=== PATIENT | female | born 1975 | race Caucasian/White ===

== ENCOUNTER 2018-01-03 02:41 | Inpatient (IN) | payer BC ==
[2018-01-03] MEDS ORDERED: Oxytocin/0.9 % Sodium Chloride 30 UNIT/500 ML BAG ONE ×2 (03:12→04:52)
[2018-01-03] MEDS ORDERED: Lidocaine 1% 50 ML MDV ONE (03:15)
[2018-01-03] MEDS ORDERED: Methylergonovine 0.2 MG/1 ML Amp ONE (03:20)
[2018-01-03] MEDS ORDERED: Carboprost Tromethamine 250 MCG/1 ML Amp IM PRN (03:26)
[2018-01-03] MEDS ORDERED: Nalbuphine 10 MG/1 ML Vial IVPUSH PRN (03:26)
[2018-01-03] MEDS ORDERED: Butorphanol 1 MG/ML SDV IVPUSH PRN (03:26)
[2018-01-03] MEDS ORDERED: Sodium Chloride 0.9% 2.5 ML Syringe FLUSH PRN (03:26)
[2018-01-03] MEDS ORDERED: Water For Irrigation,Sterile 1,000 ML Container IRR PRN (03:26)
[2018-01-03] MEDS ORDERED: Misoprostol 200 MCG Tab PO PRN (03:26)
[2018-01-03] MEDS ORDERED: Sodium Chloride 0.9% 10 ML Syringe FLUSH PRN (03:26)
[2018-01-03] MEDS ORDERED: Methylergonovine 0.2 MG/1 ML Amp IM PRN ×2 (03:26→03:54)
[2018-01-03] MEDS ORDERED: Tranexamic Acid 1,000 MG in Sodium Chloride 0.9% 100 ML IV PRN (03:26)
[2018-01-03] MEDS ORDERED: Lidocaine 1% 50 ML MDV INJECT PRN (03:26)
[2018-01-03] MEDS ORDERED: Oxytocin/0.9 % Sodium Chloride 30 UNIT/500 ML BAG IV SCH (03:30)
[2018-01-03] MEDS ORDERED: Lactated Ringers 1,000 ML IV SCH (03:30)
[2018-01-03] MEDS ORDERED: Acetaminophen 500 MG Tab PO PRN ×2 (03:54)
[2018-01-03] MEDS ORDERED: Bisacodyl 10 MG Supp RECTAL PRN (03:54)
[2018-01-03] MEDS ORDERED: Witch Hazel Medicated Pads 40/Jar TOP PRN (03:54)
[2018-01-03] MEDS ORDERED: Lanolin 100% Cream 7 GM Tube TOP PRN (03:54)
[2018-01-03] MEDS ORDERED: Ibuprofen 400 MG Tab PO PRN (03:54)
[2018-01-03] MEDS ORDERED: Benzocaine/Menthol 20%-0.5% Spray 78 GM Cannister TOP PRN (03:54)
[2018-01-03] MEDS: Ibuprofen 800 MG Tab PO PRN ×3 (05:02→20:03)
[2018-01-03] MEDS: oxyCODONE 5 MG Tab PO PRN ×3 (05:03→12:19)
[2018-01-03] MEDS: Docusate Sodium 100 MG Cap PO PRN (20:03)
[2018-01-04 07:37] VITALS: BP 122/82
[2018-01-04] MEDS: Docusate Sodium 100 MG Cap PO PRN (08:04)
[2018-01-04] MEDS: Ibuprofen 800 MG Tab PO PRN (08:04)
--- NOTE | 2018-01-04 09:52 | PCM.PNPP ---
<Delores Pierre - Last Filed: 01/04/18 09:46> - General Info Date of Service: 01/04/18 Admission Dx/Problem (Free Text): presented at 39/6 in active labor. Subjective Update: Patient is doing well. Pain is well controlled. and supplementing with formula. Lochia - WNL. Tolerating food with no n/v. Urinating. No bowel movement or flatus. Ambulating. Anticipate discharge today. Functional Status: Reports: Pain Controlled, Tolerating Diet, Ambulating, Urinating - Review of Systems General: Denies: Fever, Chills HEENT: Denies: Headaches Pulmonary: Denies: Shortness of Breath, Pleuritic Chest Pain Cardiovascular: Denies: Chest Pain, Palpitations, Lightheadedness Gastrointestinal: Denies: Abdominal Pain, Nausea, Vomiting - General Info Date of Service: 01/04/18 - Patient Data Vital Signs - Most Recent: Last Vital Signs Temp 37.0 C 01/04/18 07:36 Pulse 76 01/04/18 07:36 Resp 15 01/04/18 07:36 BP 122/82 01/04/18 07:36 Pulse Ox 95 01/04/18 07:36 Lab Results - Last 24 Hours: Laboratory Results - last 24 hr 01/04/18 Range/Units 05:52 Hgb 11.9 L (12.0-16.0) g/dL Hct 35.0 L (36.0-46.0) % Med Orders - Current: Current Medications Acetaminophen (Tylenol Extra Strength) 500 mg PO Q4H PRN PRN Reason: Pain Acetaminophen (Tylenol Extra Strength) 1,000 mg PO Q4H PRN PRN Reason: Pain Benzocaine/Menthol (Dermoplast Pain Relief 20%-0.5% Crowder) 78 gm TOP ASDIRECTED PRN PRN Reason: Perineal Comfort Measure Bisacodyl (Dulcolax) 10 mg RECTAL .ONCE PRN PRN Reason: Constipation Docusate Sodium (Colace) 100 mg PO BID PRN PRN Reason: Constipation Last Admin: 01/04/18 08:04 Dose: 100 mg Emollient Ointment (Lansinoh Hpa) 0 gm TOP ASDIRECTED PRN PRN Reason: Sore Nipples Ibuprofen (Motrin) 400 mg PO Q4H PRN PRN Reason: Pain Ibuprofen (Motrin) 800 mg PO Q6H PRN PRN Reason: Pain Last Admin: 01/04/18 08:04 Dose: 800 mg Methylergonovine Maleate (Methergine) 0.2 mg IM .ONCE PRN PRN Reason: Excessive Vaginal Bleeding Last Admin: 01/03/18 05:01 Dose: 0.2 mg Oxycodone HCl (Oxycodone) 5 mg PO Q2H PRN PRN Reason: Pain Last Admin: 01/03/18 12:19 Dose: 5 mg Witch Megan (Tucks) 1 pad TOP ASDIRECTED PRN PRN Reason: comfort care Discontinued Medications Butorphanol Tartrate (Stadol) 1 mg IVPUSH Q1H PRN PRN Reason: Pain Carboprost Tromethamine (Hemabate Ds) 250 mcg IM ASDIRECTED PRN PRN Reason: Post Hemorrhage Oxytocin/Sodium Chloride (Oxytocin 30 Unit/500 Ml-Ns) Confirm Administered Dose 30 unit in 500 mls @ as directed .ROUTE .STK-MED ONE Stop: 01/03/18 03:13 Last Admin: 01/03/18 03:20 Dose: 999 mls/hr Lactated Ringer's (Ringers, Lactated) 1,000 mls @ 150 mls/hr IV ASDIRECTED CYRUS Oxytocin/Sodium Chloride (Oxytocin 30 Unit/500 Ml-Ns) 30 unit in 500 mls @ 999 mls/hr IV TITRATE C[facility]US Tranexamic Acid 1,000 mg/ (Sodium Chloride) 110 mls @ 660 mls/hr IV ONETIME PRN PRN Reason: Bleeding Oxytocin/Sodium Chloride (Oxytocin 30 Unit/500 Ml-Ns) Confirm Administered Dose 30 unit in 500 mls @ as directed .ROUTE .STK-MED ONE Stop: 01/03/18 04:53 Last Admin: 01/03/18 05:01 Dose: 150 mls/hr Lidocaine HCl (Xylocaine 1%) Confirm Administered Dose 50 ml .ROUTE .STK-MED ONE Stop: 01/03/18 03:16 Last Admin: 01/03/18 03:31 Dose: 50 ml Lidocaine HCl (Xylocaine 1%) 50 ml INJECT .ONCE PRN PRN Reason: Laceration repair Methylergonovine Maleate (Methergine) Confirm Administered Dose 0.2 mg .ROUTE .STK-MED ONE Stop: 01/03/18 03:21 Methylergonovine Maleate (Methergine) 0.2 mg IM ASDIRECTED PRN PRN Reason: Post Hemorrhage Misoprostol (Cytotec) 200 mcg PO .ONCE PRN PRN Reason: Post Hemorrhage Nalbuphine HCl (Nubain) 10 mg IVPUSH Q1H PRN PRN Reason: Pain (severe 7-10) Sodium Chloride (Saline Flush) 10 ml FLUSH ASDIRECTED PRN PRN Reason: Keep Vein Open Sodium Chloride (Saline Flush) 2.5 ml FLUSH ASDIRECTED PRN PRN Reason: Keep Vein Open Sterile Water (Sterile Water For Irrigation) 1,000 ml IRR ASDIRECTED PRN PRN Reason: delivery - Infant Interaction Disposition, : in Room with Family Interaction: Holding Infant Infant Feeding: Attempted ; Nursed Fair/Poor Other Feeding: Supplementing with formula. Support Person: - Recovery Exam Fundal Tone: Firm Fundal Level: 2 Fingerbreadths Below Umbilicus Fundal Placement: Midline Lochia Amount: Scant Lochia Color: Rubra/Red Bladder Status: Voiding Urinary Elimination: Voided - Exam General: Alert, Oriented, No Acute Distress Lungs: Clear to Auscultation, Normal Respiratory Effort Cardiovascular: Regular Rate, Regular Rhythm GI/Abdominal Exam: Soft, Non-Tender Extremities: No Pedal Edema Skin: Warm, Dry Psy/Mental Status: Alert - Assessment Assessment:: , PPD #1. Stable. Discharge today. - Plan Plan:: Reviewed discharge instructions. Pelvic rest for 6 weeks. Continue PNV while . Follow-up appointment in 6 weeks. Call if fever greater than 101 or bleeding through a pad in an hour. Reviewed post- depression symptoms. <Arabella Kong - Last Filed: 01/04/18 11:02> - Patient Data Vital Signs - Most Recent: Last Vital Signs Temp 37.0 C 01/04/18 07:36 Pulse 76 01/04/18 07:36 Resp 15 01/04/18 07:36 BP 122/82 01/04/18 07:36 Pulse Ox 95 01/04/18 07:36 Lab Results - Last 24 Hours: Laboratory Results - last 24 hr 01/04/18 Range/Units 05:52 Hgb 11.9 L (12.0-16.0) g/dL Hct 35.0 L (36.0-46.0) % Med Orders - Current: Current Medications Acetaminophen (Tylenol Extra Strength) 500 mg PO Q4H PRN PRN Reason: Pain Acetaminophen (Tylenol Extra Strength) 1,000 mg PO Q4H PRN PRN Reason: Pain Benzocaine/Menthol (Dermoplast Pain Relief 20%-0.5% Crowder) 78 gm TOP ASDIRECTED PRN PRN Reason: Perineal Comfort Measure Bisacodyl (Dulcolax) 10 mg RECTAL .ONCE PRN PRN Reason: Constipation Docusate Sodium (Colace) 100 mg PO BID PRN PRN Reason: Constipation Last Admin: 01/04/18 08:04 Dose: 100 mg Emollient Ointment (Lansinoh Hpa) 0 gm TOP ASDIRECTED PRN PRN Reason: Sore Nipples Ibuprofen (Motrin) 400 mg PO Q4H PRN PRN Reason: Pain Ibuprofen (Motrin) 800 mg PO Q6H PRN PRN Reason: Pain Last Admin: 01/04/18 08:04 Dose: 800 mg Methylergonovine Maleate (Methergine) 0.2 mg IM .ONCE PRN PRN Reason: Excessive Vaginal Bleeding Last Admin: 01/03/18 05:01 Dose: 0.2 mg Oxycodone HCl (Oxycodone) 5 mg PO Q2H PRN PRN Reason: Pain Last Admin: 01/03/18 12:19 Dose: 5 mg Witch Megan (Tucks) 1 pad TOP ASDIRECTED PRN PRN Reason: comfort care Discontinued Medications Butorphanol Tartrate (Stadol) 1 mg IVPUSH Q1H PRN PRN Reason: Pain Carboprost Tromethamine (Hemabate Ds) 250 mcg IM ASDIRECTED PRN PRN Reason: Post Hemorrhage Oxytocin/Sodium Chloride (Oxytocin 30 Unit/500 Ml-Ns) Confirm Administered Dose 30 unit in 500 mls @ as directed .ROUTE .STK-MED ONE Stop: 01/03/18 03:13 Last Admin: 01/03/18 03:20 Dose: 999 mls/hr Lactated Ringer's (Ringers, Lactated) 1,000 mls @ 150 mls/hr IV ASDIRECTED CYRUS Oxytocin/Sodium Chloride (Oxytocin 30 Unit/500 Ml-Ns) 30 unit in 500 mls @ 999 mls/hr IV TITRATE C[facility] Tranexamic Acid 1,000 mg/ (Sodium Chloride) 110 mls @ 660 mls/hr IV ONETIME PRN PRN Reason: Bleeding Oxytocin/Sodium Chloride (Oxytocin 30 Unit/500 Ml-Ns) Confirm Administered Dose 30 unit in 500 mls @ as directed .ROUTE .STK-MED ONE Stop: 01/03/18 04:53 Last Admin: 01/03/18 05:01 Dose: 150 mls/hr Lidocaine HCl (Xylocaine 1%) Confirm Administered Dose 50 ml .ROUTE .STK-MED ONE Stop: 01/03/18 03:16 Last Admin: 01/03/18 03:31 Dose: 50 ml Lidocaine HCl (Xylocaine 1%) 50 ml INJECT .ONCE PRN PRN Reason: Laceration repair Methylergonovine Maleate (Methergine) Confirm Administered Dose 0.2 mg .ROUTE .[employer] ONE Stop: 01/03/18 03:21 Methylergonovine Maleate (Methergine) 0.2 mg IM ASDIRECTED PRN PRN Reason: Post Hemorrhage Misoprostol (Cytotec) 200 mcg PO .ONCE PRN PRN Reason: Post Hemorrhage Nalbuphine HCl (Nubain) 10 mg IVPUSH Q1H PRN PRN Reason: Pain (severe 7-10) Sodium Chloride (Saline Flush) 10 ml FLUSH ASDIRECTED PRN PRN Reason: Keep Vein Open Sodium Chloride (Saline Flush) 2.5 ml FLUSH ASDIRECTED PRN PRN Reason: Keep Vein Open Sterile Water (Sterile Water For Irrigation) 1,000 ml IRR ASDIRECTED PRN PRN Reason: delivery - Problem List & Annotations (1) Vaginal after SNOMED Code(s): 045677261 Code(s): O34.219 - MATERNAL CARE FOR UNSP TYPE SCAR FROM PREVIOUS DEL Status: Acute Current Visit: Yes - Problem List Review Problem List Initiated/Reviewed/Updated: Yes - Plan Plan:: patient was seen and examined by me and I agree with above, discharge instructions reviewed.
--- NOTE | 2018-01-05 11:26 | OR ---
SURGEON: Arabella Kong M.D. DATE OF PROCEDURE: 01/03/2018 PREOPERATIVE DIAGNOSES: 1. A 39-week intrauterine . 2. Active spontaneous labor. 3. Prior delivery. 4. Desires trial of labor. POSTOPERATIVE DIAGNOSES: 1. A 39-week intrauterine . 2. Active spontaneous labor. 3. Prior delivery. 4. Desires trial of labor. PROCEDURE PERFORMED: Vaginal after delivery. PRIMARY SURGEON: Arabella Kong M.D. ANESTHESIA: Pudendal. ESTIMATED BLOOD LOSS: Less than 300 mL. FINDINGS: Liveborn male, scores of 8 and 9, weight is pending at the time of dictation. Placenta spontaneous, Schultze, intact, with 3 vessels. Perineum intact. BRIEF HISTORY: This is a 42-year-old female. She is G14, V32-4-1-07. She presented with contractions that have become regular and more painful. She presented at approximately 0255 hours. She received an IV, as she was 5 cm and then, soon thereafter, 6 cm dilated. Laboratory studies were obtained. Anesthesia was notified of request for epidural; however, soon thereafter, her water broke, she did have category 1 heart tones. She progressed to complete within a few minutes. DESCRIPTION OF PROCEDURE: With the patient in dorsolithotomy position, she was 9 cm, pudendal block was performed, placing 10 mL of 1% lidocaine 1 cm medial and inferior to the spinous process on the right and the left. This being completed, the patient was allowed to push. She pushed over 1 long contraction to a 5+ station, at which time the head was delivered spontaneously and atraumatically over the perineum with support, with subsequent delivery of the infant's shoulders and body without any difficulty. The was bulb suctioned by nose and mouth, and the cord was clamped x2 and cut. The was handed to the mother in the presence of the nurse attending delivery. The infant was a liveborn male with scores of 8 and 9. Weight is pending at the time of dictation. A segment of cord was clamped. Pitocin was initiated, after delivery of the infant, to assist with delivery of the placenta, which was delivered spontaneously, Schultze, intact with 3 vessels. Upon inspection of the pelvis and perineum, there were no periurethral, vaginal sidewall, cervical, rectal, or perineal lacerations. EBL was less than 300 mL. Upon inspection of the cord, I was unable to obtain any arterial blood; however, venous blood was sent for cord gases, as well as for routine cord blood sampling. Delivery was at 0318 hours. The patient was present on Labor and Delivery for just over 20 minutes prior to the delivery. Final sponge, needle, and instrument counts were correct. There were no known complications. Mother and baby are in LDRP in good condition. MAC TAVERAS /[id number]
== END 2018-01-04 17:30 | disposition home or self-care (01) | DRG 560 ==
LOC: MW.OBCHECK 02:41 → MW.OB 02:44 → MW.OBCHECK 03:17 → MW.OB 03:17
PROVIDERS: ADMIT Obstetrics & Gynecology; ATTEND Obstetrics & Gynecology
PROC: 10E0XZZ Delivery of Products of Conception, External Approach (ICD-10-PCS; principal; 2018-01-03)
DX: O34.211 Maternal care for low transverse scar from previous cesarean delivery (principal); O09.523 Supervision of elderly multigravida, third trimester; O09.43 Supervision of pregnancy with grand multiparity, third trimester; Z3A.39 39 weeks gestation of pregnancy; Z37.0 Single live birth
CPT/HCPCS: 36415; 59025; 59409; 82803; 85014; 85018; 85027; 86850; 86900; 86901; A9270-GY; J2210; J2590

== ENCOUNTER 2019-07-04 01:18 | Inpatient (IN) | payer BC ==
[2019-07-04] MEDS ORDERED: Butorphanol 1 MG/ML SDV IVPUSH PRN (01:23)
[2019-07-04] MEDS ORDERED: Misoprostol 200 MCG Tab PO PRN (01:23)
[2019-07-04] MEDS ORDERED: Lidocaine 1% 50 ML MDV INJECT PRN (01:23)
[2019-07-04] MEDS ORDERED: Sodium Chloride 0.9% 10 ML SDV IV PRN (01:23)
[2019-07-04] MEDS ORDERED: Carboprost Tromethamine 250 MCG/1 ML Amp IM PRN (01:23)
[2019-07-04] MEDS ORDERED: Tranexamic Acid 1,000 MG in Sodium Chloride 0.9% 100 ML IV PRN (01:23)
[2019-07-04] MEDS ORDERED: Nalbuphine 10 MG/1 ML Vial IVPUSH PRN (01:23)
[2019-07-04] MEDS ORDERED: Water For Irrigation,Sterile 1,000 ML Container IRR PRN (01:23)
[2019-07-04] MEDS ORDERED: Sodium Chloride 0.9% 2.5 ML Syringe FLUSH PRN (01:23)
[2019-07-04] MEDS ORDERED: Methylergonovine 0.2 MG/1 ML Amp IM PRN (01:23)
[2019-07-04] MEDS ORDERED: Sodium Chloride 0.9% 10 ML Syringe FLUSH PRN (01:23)
[2019-07-04] MEDS ORDERED: Oxytocin/0.9 % Sodium Chloride 30 UNIT/500 ML BAG IV SCH (01:30)
[2019-07-04] MEDS: Lactated Ringers 1,000 ML IV SCH ×2 (01:32→02:27)
--- NOTE | 2019-07-04 01:41 | PCM.LDHP ---
L&D History of Present Illness - General Date of Service: 07/04/19 Admit Problem/Dx: Patient Status Order with Admit Dx/Problem 07/04/19 01:23 Patient Status [ADT] Routine Admission Diagnosis/Problem Admission Diagnosis/Problem - planned Source of Information: Patient History Limitations: Reports: No Limitations - History of Present Illness Improves with: Reports: None Worsens with: Reports: None Associated Symptoms: Reports: N - Related Data Allergies/Adverse Reactions: Allergies Allergy/AdvReac Type Severity Reaction Status Date / Time No Known Allergies Allergy Verified 07/04/19 01:22 Past Medical History - Past Health History Medical/Surgical History: Denies 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: Social & Family History - Family History Cardiac: Reports: Stent Endocrine/Metabolic: Reports: Hypothyroidism - Caffeine Use Caffeine Use: Reports: Coffee, Soda H&P Review of Systems - Review of Systems: Review Of Systems: See Below General: Reports: No Symptoms HEENT: Reports: No Symptoms Pulmonary: Reports: No Symptoms Cardiovascular: Reports: No Symptoms Gastrointestinal: Reports: No Symptoms Genitourinary: Reports: No Symptoms Musculoskeletal: Reports: No Symptoms Skin: Reports: No Symptoms Psychiatric: Reports: No Symptoms Neurological: Reports: No Symptoms Hematologic/Lymphatic: Reports: No Symptoms Immunologic: Reports: No Symptoms L&D Exam - Exam Exam: See Below - Vital Signs Weight: 83.915 kg - OB Specific Contraction Intensity: Mild to Moderate Movement: Active Heart Tones: Present Presentation: Vertex - Carranza Score Carranza Score Cervix Position: Anterior Carranza Score Consistency: Soft Carranza Score Effacement: 51-70% Carranza Score Dilation: > 5 cm Carranza Score 's Station: -2 Carranza Score Total: 10 - Exam General: Alert, Oriented HEENT: PERRLA, Conjunctiva Clear, EACs Clear, EOMI, Hearing Intact, Mucosa Moist & [place], Nares Patent, Normal Nasal Septum, Posterior Pharynx Clear, TMs Clear Neck: Supple, Trachea Midline Lungs: Clear to Auscultation, Normal Respiratory Effort Cardiovascular: Regular Rate, Regular Rhythm GI/Abdominal Exam: Normal Bowel Sounds, Soft, Non-Tender, No Organomegaly, No Distention, No Abnormal Bruit, No Mass, Pelvis Stable Rectal Exam: Normal Exam, Normal Rectal Tone Genitourinary: Normal external exam, Normal bimanual exam, Normal speculum exam Back Exam: Normal Inspection, Full Range of Motion Extremities: Normal Inspection, Normal Range of Motion, Non-Tender, No Pedal Edema, Normal Capillary Refill Skin: Warm, Dry, Intact Neurological: Cranial Nerves Intact, Reflexes Equal Bilateral Psychiatric: Alert, Normal Affect, Normal Mood Problem List Initiated/Reviewed/Updated: Yes Orders Last 24hrs: Active Orders 24 hr Category Date Time Status Patient Status [ADT] Routine ADT 07/04/19 01:23 Active Heart Tones [RC] CONTINUOUS Care 07/04/19 01:23 Active Non Stress Test [RC] PER UNIT ROUTINE Care 07/04/19 01:23 Active May Shower [RC] ASDIRECTED Care 07/04/19 01:23 Active Notify Provider [RC] PRN Care 07/04/19 01:23 Active Up ad Diana [RC] ASDIRECTED Care 07/04/19 01:23 Active Vaginal Exam [RC] PRN Care 07/04/19 01:23 Active Vital Signs [RC] PER UNIT ROUTINE Care 07/04/19 01:23 Active CBC W/O DIFF,HEMOGRAM [HEME] Routine Lab 07/04/19 01:27 Received TYPE AND SCREEN [BBK] Routine Lab 07/04/19 01:27 Received Butorphanol [Stadol] Med 07/04/19 01:23 Active 1 mg IVPUSH Q1H PRN Carboprost Tromethamine [Hemabate DS] Med 07/04/19 01:23 Active 250 mcg IM ASDIRECTED PRN Lactated Ringers [Ringers, Lactated] 1,000 ml Med 07/04/19 01:30 Active IV ASDIRECTED Lidocaine 1% [Xylocaine 1%] Med 07/04/19 01:23 Active 50 ml INJECT ONETIME PRN Methylergonovine [Methergine] Med 07/04/19 01:23 Active 0.2 mg IM ASDIRECTED PRN Nalbuphine [Nubain] Med 07/04/19 01:23 Active 10 mg IVPUSH Q1H PRN Oxytocin/0.9 % Sodium Chloride [Oxytocin 30 Unit/500 ML Med 07/04/19 01:30 Active -NS] 30 unit in 500 ml IV TITRATE Sodium Chloride 0.9% [Normal Saline] Med 07/04/19 01:23 Active 10 ml IV ASDIRECTED PRN Sodium Chloride 0.9% [Saline Flush] Med 07/04/19 01:23 Active 10 ml FLUSH ASDIRECTED PRN Sodium Chloride 0.9% [Saline Flush] Med 07/04/19 01:23 Active 2.5 ml FLUSH ASDIRECTED PRN Tranexamic Acid [Cyklokapron] 1,000 mg Med 07/04/19 01:23 Active Sodium Chloride 0.9% [Normal Saline] 100 ml IV ONETIME Water For Irrigation,Sterile [Sterile Water for Med 07/04/19 01:23 Active Irrigation] 1,000 ml IRR ASDIRECTED PRN miSOPROStol [Cytotec] Med 07/04/19 01:23 Active 200 mcg PO ONETIME PRN Scalp Electrode [WOMSER] Per Unit Routine Oth 07/04/19 01:23 Ordered Peripheral IV Insertion Adult [OM.PC] Routine Oth 07/04/19 01:23 Ordered Resuscitation Status Routine Resus Stat 07/04/19 01:23 Ordered Medication Orders Butorphanol Tartrate (Stadol) 1 mg IVPUSH Q1H PRN PRN Reason: Pain Carboprost Tromethamine (Hemabate Ds) 250 mcg IM ASDIRECTED PRN PRN Reason: Post Hemorrhage Lactated Ringer's (Ringers, Lactated) 1,000 mls @ 150 mls/hr IV ASDIRECTED [facility] Last Admin: 07/04/19 01:32 Dose: 999 mls/hr Oxytocin/Sodium Chloride (Oxytocin 30 Unit/500 Ml-Ns) 30 unit in 500 mls @ 999 mls/hr IV TITRATE [facility] Tranexamic Acid 1,000 mg/ (Sodium Chloride) 110 mls @ 660 mls/hr IV ONETIME PRN PRN Reason: Bleeding Lidocaine HCl (Xylocaine 1%) 50 ml INJECT ONETIME PRN PRN Reason: Laceration repair Methylergonovine Maleate (Methergine) 0.2 mg IM ASDIRECTED PRN PRN Reason: Post Hemorrhage Misoprostol (Cytotec) 200 mcg PO ONETIME PRN PRN Reason: Post Hemorrhage Nalbuphine HCl (Nubain) 10 mg IVPUSH Q1H PRN PRN Reason: Pain (severe 7-10) Sodium Chloride (Saline Flush) 10 ml FLUSH ASDIRECTED PRN PRN Reason: Keep Vein Open Sodium Chloride (Saline Flush) 2.5 ml FLUSH ASDIRECTED PRN PRN Reason: Keep Vein Open Sodium Chloride (Normal Saline) 10 ml IV ASDIRECTED PRN PRN Reason: IV Use Sterile Water (Sterile Water For Irrigation) 1,000 ml IRR ASDIRECTED PRN PRN Reason: delivery Assessment/Plan Comment:: IUP 40 wk in active labor. S/P VEBC.
[2019-07-04] MEDS ORDERED: fentaNYL 100 MCG/2 ML SDV ONE (01:58)
[2019-07-04] MEDS ORDERED: Bupivacaine 0.25% 10 ML SDV ONE (01:58)
--- NOTE | 2019-07-04 02:34 | PCM.PREANE ---
Preanesthetic Assessment - Procedure Proposed Procedure: KELY for DANA - Anesthesia/Transfusion/Family Hx Anesthesia History: Prior Anesthesia Without Reaction Transfusion History: No Prior Transfusion(s) - Review of Systems General: No Symptoms Pulmonary: No Symptoms Cardiovascular: No Symptoms Gastrointestinal: No Symptoms Neurological: No Symptoms Other: Reports: None - Physical Assessment NPO Status Date: 07/04/19 NPO Status Time: 02:33 Height: 1.65 m Weight: 83.915 kg ASA Class: 2E Mental Status: Alert & Oriented x3 Airway Class: Mallampati = 1 Dentition: Reports: Normal Dentition ROM/Head Extension: Full Lungs: Clear to Auscultation Cardiovascular: Regular Rate - Lab Values: Laboratory Last Values WBC 8.57 K/uL (4.0-11.0) 07/04/19 01:27 RBC 4.11 M/uL (4.30-5.90) L 07/04/19 01:27 Hgb 12.8 g/dL (12.0-16.0) 07/04/19 01:27 Hct 37.3 % (36.0-46.0) 07/04/19 01:27 MCV 90.8 fL (80.0-98.0) 07/04/19 01:27 MCH 31.1 pg (27.0-32.0) 07/04/19 01:27 MCHC 34.3 g/dL (31.0-37.0) 07/04/19 01:27 RDW Std Deviation 42.7 fl (28.0-62.0) 07/04/19 01:27 RDW Coeff of Yi 13 % (11.0-15.0) 07/04/19 01:27 Plt Count 307 K/uL (150-400) 07/04/19 01:27 MPV 9.20 fL (7.40-12.00) 07/04/19 01:27 Blood Type O POSITIVE 07/04/19 01:27 Antibody Screen NEGATIVE 07/04/19 01:27 - Allergies Allergies/Adverse Reactions: Allergies Allergy/AdvReac Type Severity Reaction Status Date / Time No Known Allergies Allergy Verified 07/04/19 01:22 - Acknowledgements Anesthesia Type Planned: Epidural Pt an Appropriate Candidate for the Planned Anesthesia: Yes Alternatives and Risks of Anesthesia Discussed w Pt/Guardian: Yes Pt/Guardian Understands and Agrees with Anesthesia Plan: Yes PreAnesthesia Questionnaire - Past Health History Medical/Surgical History: Denies 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 Current Meds: Current Medications Butorphanol Tartrate (Stadol) 1 mg IVPUSH Q1H PRN PRN Reason: Pain Carboprost Tromethamine (Hemabate Ds) 250 mcg IM ASDIRECTED PRN PRN Reason: Post Hemorrhage Lactated Ringer's (Ringers, Lactated) 1,000 mls @ 150 mls/hr IV ASDIRECTED CYRUS Last Admin: 07/04/19 01:32 Dose: 999 mls/hr Oxytocin/Sodium Chloride (Oxytocin 30 Unit/500 Ml-Ns) 30 unit in 500 mls @ 999 mls/hr IV TITRATE [facility] Tranexamic Acid 1,000 mg/ (Sodium Chloride) 110 mls @ 660 mls/hr IV ONETIME PRN PRN Reason: Bleeding Lidocaine HCl (Xylocaine 1%) 50 ml INJECT ONETIME PRN PRN Reason: Laceration repair Methylergonovine Maleate (Methergine) 0.2 mg IM ASDIRECTED PRN PRN Reason: Post Hemorrhage Misoprostol (Cytotec) 200 mcg PO ONETIME PRN PRN Reason: Post Hemorrhage Nalbuphine HCl (Nubain) 10 mg IVPUSH Q1H PRN PRN Reason: Pain (severe 7-10) Sodium Chloride (Saline Flush) 10 ml FLUSH ASDIRECTED PRN PRN Reason: Keep Vein Open Sodium Chloride (Saline Flush) 2.5 ml FLUSH ASDIRECTED PRN PRN Reason: Keep Vein Open Sodium Chloride (Normal Saline) 10 ml IV ASDIRECTED PRN PRN Reason: IV Use Sterile Water (Sterile Water For Irrigation) 1,000 ml IRR ASDIRECTED PRN PRN Reason: delivery Discontinued Medications Bupivacaine HCl (Sensorcaine-Mpf 0.25%) Confirm Administered Dose 10 ml .ROUTE .STK-MED ONE Stop: 07/04/19 01:59 Fentanyl (Sublimaze) Confirm Administered Dose 100 mcg .ROUTE .STK-MED ONE Stop: 07/04/19 01:59 Fentanyl/Bupivacaine HCl (Xntgnijv-Ijrub-Fi 2 Mcg/Ml-0.125%) Confirm Administered Dose 100 mls @ as directed .ROUTE .STK-MED ONE Stop: 07/04/19 01:59
[2019-07-04] MEDS ORDERED: Docusate Sodium 100 MG Cap PO PRN (05:11)
[2019-07-04] MEDS ORDERED: Witch Hazel Medicated Pads 40/Jar TOP PRN (05:11)
[2019-07-04] MEDS ORDERED: Bisacodyl 10 MG Supp RECTAL PRN (05:11)
[2019-07-04] MEDS ORDERED: Benzocaine/Menthol 20%-0.5% Spray 78 GM Cannister TOP PRN (05:11)
[2019-07-04] MEDS ORDERED: Lanolin 100% Cream 7 GM Tube TOP PRN (05:11)
[2019-07-04] MEDS ORDERED: Acetaminophen 500 MG Tab PO PRN ×2 (05:11)
[2019-07-04] MEDS ORDERED: Ibuprofen 400 MG Tab PO PRN (05:11)
[2019-07-04] MEDS ORDERED: oxyCODONE 5 MG Tab PO PRN (05:11)
[2019-07-04] MEDS: Ibuprofen 800 MG Tab PO PRN ×2 (07:56→17:49)
--- NOTE | 2019-07-04 11:41 | PCM48HPAN ---
Post Anesthesia Note - EVALUATION WITHIN 48HRS OF ANESTHETIC Vital Signs in Normal Range: Yes Patient Participated in Evaluation: Yes Respiratory Function Stable: Yes Airway Patent: Yes Cardiovascular Function Stable: Yes Hydration Status Stable: Yes Pain Control Satisfactory: Yes Nausea and Vomiting Control Satisfactory: Yes Mental Status Recovered: Yes
[2019-07-05] MEDS: Ibuprofen 800 MG Tab PO PRN (08:00)
--- NOTE | 2019-07-05 08:03 | OR ---
SURGEON: Adalberto Giles MD DATE OF PROCEDURE: 07/04/2019 Ms. Ureña is a 44-year-old female. She is para 13-0-1-13. She had 1 section and all others delivered vaginally. She is admitted in active labor. At the time of admission, she was about 5 cm, 70, vertex, -3. The patient has had contractions regularly every 3 to 4 minutes. heart rate was normal. The patient had epidural anesthesia for labor analgesia. Then, I did an artificial rupture of the membranes with clear fluid. The patient is 40 weeks' the day she was admitted, which is July 04, 2019. The patient progressed without any problem, and she was able to accomplish normal spontaneous vaginal delivery of a male fetus, cried immediately. scores reported to be 8 and 9. The weight is not available. The placenta delivered spontaneous, complete, and intact. Estimated blood loss was 250 to 300 mL. heart rate was category 1 through the entire process of labor. There was no laceration and no need for episiotomy. There was no complication in the labor and delivery process. DAGMAR / NITIN /[id number]
[2019-07-05 08:34] VITALS: BP 132/85; PULSE 67
--- NOTE | 2019-07-05 08:52 | PCM.DCSUM1 ---
Discharge Summary - Hospital Course Diagnosis: Stroke: No - Discharge Data Discharge Date: 07/05/19 Discharge Disposition: Home, Self-Care 01 Condition: Good - Referral to Home Health Primary Care Physician: PCP None - Patient Instructions Diet: Usual Diet as Tolerated Activity: As Tolerated Showering/Bathing: May Shower Notify Provider of: Fever, Increased Pain, Nausea and/or Vomiting - Discharge Plan - Discharge Summary/Plan Comment DC Time >30 min.: Yes - General Info Date of Service: 07/05/19 Functional Status: Reports: Pain Controlled - Review of Systems General: Reports: No Symptoms HEENT: Reports: No Symptoms Pulmonary: Reports: No Symptoms Cardiovascular: Reports: No Symptoms Gastrointestinal: Reports: No Symptoms Genitourinary: Reports: No Symptoms Musculoskeletal: Reports: No Symptoms Skin: Reports: No Symptoms Neurological: Reports: No Symptoms Psychiatric: Reports: No Symptoms - Patient Data Vitals - Most Recent: Last Vital Signs Temp 36.4 C 07/05/19 07:38 Pulse 67 07/05/19 07:38 Resp 18 07/05/19 07:38 BP 132/85 07/05/19 07:38 Pulse Ox 97 07/05/19 07:38 Weight - Most Recent: 85.275 kg Lab Results - Last 24 hrs: Laboratory Results - last 24 hr 07/05/19 Range/Units 06:05 Hgb 12.3 (12.0-16.0) g/dL Hct 36.8 (36.0-46.0) % Med Orders - Current: Current Medications Acetaminophen (Tylenol Extra Strength) 500 mg PO Q4H PRN PRN Reason: Pain Acetaminophen (Tylenol Extra Strength) 1,000 mg PO Q4H PRN PRN Reason: Pain Benzocaine/Menthol (Dermoplast Pain Relief 20%-0.5% [place]) 78 gm TOP ASDIRECTED PRN PRN Reason: Perineal Comfort Measure Last Admin: 07/04/19 07:56 Dose: 1 canister Bisacodyl (Dulcolax) 10 mg RECTAL ONETIME PRN PRN Reason: Constipation Docusate Sodium (Colace) 100 mg PO BID PRN PRN Reason: Constipation Last Admin: 07/04/19 20:43 Dose: 100 mg Emollient Ointment (Lansinoh Hpa) 0 gm TOP ASDIRECTED PRN PRN Reason: Sore Nipples Tranexamic Acid 1,000 mg/ (Sodium Chloride) 110 mls @ 660 mls/hr IV ONETIME PRN PRN Reason: Bleeding Ibuprofen (Motrin) 400 mg PO Q4H PRN PRN Reason: Pain Ibuprofen (Motrin) 800 mg PO Q6H PRN PRN Reason: Pain Last Admin: 07/05/19 08:00 Dose: 800 mg Methylergonovine Maleate (Methergine) 0.2 mg IM ASDIRECTED PRN PRN Reason: Post Hemorrhage Misoprostol (Cytotec) 200 mcg PO ONETIME PRN PRN Reason: Post Hemorrhage Oxycodone HCl (Oxycodone) 5 mg PO Q2H PRN PRN Reason: Pain Sodium Chloride (Saline Flush) 10 ml FLUSH ASDIRECTED PRN PRN Reason: Keep Vein Open Sodium Chloride (Saline Flush) 2.5 ml FLUSH ASDIRECTED PRN PRN Reason: Keep Vein Open Sodium Chloride (Normal Saline) 10 ml IV ASDIRECTED PRN PRN Reason: IV Use Witch Megan (Tucks) 1 pad TOP ASDIRECTED PRN PRN Reason: comfort care Last Admin: 07/04/19 07:55 Dose: 1 tub Discontinued Medications Bupivacaine HCl (Sensorcaine-Mpf 0.25%) Confirm Administered Dose 10 ml .ROUTE .STK-MED ONE Stop: 07/04/19 01:59 Butorphanol Tartrate (Stadol) 1 mg IVPUSH Q1H PRN PRN Reason: Pain Carboprost Tromethamine (Hemabate Ds) 250 mcg IM ASDIRECTED PRN PRN Reason: Post Hemorrhage Fentanyl (Sublimaze) Confirm Administered Dose 100 mcg .ROUTE .STK-MED ONE Stop: 07/04/19 01:59 Lactated Ringer's (Ringers, Lactated) 1,000 mls @ 150 mls/hr IV ASDIRECTED CYRUS Last Infusion: 07/04/19 03:15 Dose: Infused Oxytocin/Sodium Chloride (Oxytocin 30 Unit/500 Ml-Ns) 30 unit in 500 mls @ 999 mls/hr IV TITRATE CYRUS Last Admin: 07/04/19 05:00 Dose: 999 mls/hr Fentanyl/Bupivacaine HCl (Hefwbuvf-Cblkz-Pq 2 Mcg/Ml-0.125%) Confirm Administered Dose 100 mls @ as directed .ROUTE .Applicasa ONE Stop: 07/04/19 01:59 Lidocaine HCl (Xylocaine 1%) 50 ml INJECT ONETIME PRN PRN Reason: Laceration repair Nalbuphine HCl (Nubain) 10 mg IVPUSH Q1H PRN PRN Reason: Pain (severe 7-10) Sterile Water (Sterile Water For Irrigation) 1,000 ml IRR ASDIRECTED PRN PRN Reason: delivery - Exam General: Reports: Alert, Oriented HEENT: Reports: Pupils Equal, Pupils Reactive, EOMI, Mucous Membr. Moist/[place] Neck: Reports: Supple Lungs: Reports: Clear to Auscultation, Normal Respiratory Effort Cardiovascular: Reports: Regular Rate, Regular Rhythm GI/Abdominal Exam: Normal Bowel Sounds, Soft, Non-Tender, No Organomegaly, No Distention, No Abnormal Bruit, No Mass, Pelvis Stable (Female) Exam: Normal External Exam, Normal Speculum Exam, Normal Bimanual Exam Rectal (Female) Exam: Normal Exam, Normal Rectal Tone Back Exam: Reports: Normal Inspection, Full Range of Motion Extremities: Normal Inspection, Normal Range of Motion, Non-Tender, No Pedal Edema, Normal Capillary Refill Skin: Reports: Warm, Dry, Intact Wound/Incisions: Reports: Healing Well Neurological: Reports: No New Focal Deficit Psy/Mental Status: Reports: Alert, Normal Affect, Normal Mood
== END 2019-07-05 14:40 | disposition home or self-care (01) | DRG 560 ==
LOC: MW.OBCHECK 01:18 → MW.OB 01:20 → MW.OBCHECK 01:39 → OBSVTOIN 04:59 → MW.OB 11:48
PROVIDERS: ADMIT Obstetrics & Gynecology; ATTEND Obstetrics & Gynecology
PROC: 10E0XZZ Delivery of Products of Conception, External Approach (ICD-10-PCS; principal; 2019-07-04)
PROC: 10907ZC Drainage of Amniotic Fluid, Therapeutic from Products of Conception, Via Natural or Artificial Opening (ICD-10-PCS; 2019-07-04)
PROC: 3E0R3BZ Introduction of Anesthetic Agent into Spinal Canal, Percutaneous Approach (ICD-10-PCS; 2019-07-04)
DX: O48.0 Post-term pregnancy (principal); Z37.0 Single live birth; Z3A.40 40 weeks gestation of pregnancy
CPT/HCPCS: 36415; 51702; 59025; 59409; 85014; 85018; 85027; 86850; 86900; 86901; A9270-GY; J2590; J7120

== ENCOUNTER 2020-09-10 20:59 | Day surgery (SDC) | payer BC ==
--- NOTE | 2020-09-10 21:44 | EDM.PDOC ---
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 Patient believes she is anywhere from 6 to 10 weeks . Patient states that she seen her PIPE BENDING MACHINE OPERATOR doctor and ultrasound that did not confirm IUP but is scheduled to have a D&C this week. Patient states about 2 hours ago started having profuse bright red bleeding from from the vaginal area with clots as well. Patient denies any weakness fevers chills or abdominal pain. - Related Data Allergies Allergy/AdvReac Type Severity Reaction Status Date / Time No Known Allergies Allergy Verified 09/10/20 21:17 Home Meds: Home Meds . [No Known Home Meds] 09/10/20 [History] Past Medical History - Past Health History Medical/Surgical History: Denies Medical/Surgical History PULMONOLOGY TECHNICIAN History: Reports: , Other (See Below) Other PULMONOLOGY TECHNICIAN History: stillborn at 32 weeks, cord around neck. section - Infectious Disease History Infectious Disease History: Reports: Chicken Pox Social & Family History - Family History Family Medical History: No Pertinent Family History Cardiac: Reports: Stent Endocrine/Metabolic: Reports: Hypothyroidism - Tobacco Use Packs/Tins Daily: 0.5 - Caffeine Use Caffeine Use: Reports: None - Recreational Drug Use Recreational Drug Use: No ED ROS GENERAL - Review of Systems Review Of Systems: See Below Constitutional: Reports: No Symptoms HEENT: Reports: No Symptoms Respiratory: Reports: No Symptoms Cardiovascular: Reports: No Symptoms Endocrine: Reports: No Symptoms GI/Abdominal: Reports: No Symptoms : Reports: Hematuria Musculoskeletal: Reports: No Symptoms Skin: Reports: No Symptoms Neurological: Reports: No Symptoms Psychiatric: Reports: No Symptoms Hematologic/Lymphatic: Reports: No Symptoms Immunologic: Reports: No Symptoms ED EXAM, GENERAL - Physical Exam Exam: See Below Exam Limited By: No Limitations General Appearance: Alert, WD/WN, No Apparent Distress Neck: Normal Inspection Respiratory/Chest: No Respiratory Distress, Lungs Clear Cardiovascular: Normal Peripheral Pulses, Regular Rate, Rhythm GI/Abdominal: Normal Bowel Sounds, Soft, Non-Tender (Female) Exam: Normal External Exam, Normal Bimanual Exam, Products of Conception, Vaginal Bleeding Neurological: Alert, Oriented Course - Vital Signs Last Recorded V/S: Last Vital Signs Temp 98.6 F 09/10/20 21:10 Pulse 86 09/10/20 22:48 Resp 18 09/10/20 22:48 BP 123/76 09/10/20 22:48 Pulse Ox 100 09/10/20 22:48 - Orders/Labs/Meds Orders: Active Orders 24 hr Category Date Time Status Admission Status [Patient Status] [ADT] Stat ADT 09/10/20 23:24 Active Patient Status [ADT] Routine ADT 09/10/20 23:56 Active Antiembolic Devices [RC] PER UNIT ROUTINE Care 09/10/20 23:57 Active Verify Patient Consent Obtain [RC] PER UNIT ROUTINE Care 09/10/20 23:56 Active Vital Signs [RC] PER UNIT ROUTINE Care 09/10/20 23:56 Active CBC W/O DIFF,HEMOGRAM [HEME] Routine Lab 09/11/20 04:00 Ordered Acetaminophen [Ofirmev] 1,000 mg Med 09/11/20 00:10 Active Premix Bag 1 bag IV Q6H Doxycycline [Vibramycin] 200 mg Med 09/10/20 23:45 Active Dextrose 5% in Water 250 ml IV Q12H Sodium Chloride 0.9% [Normal Saline] Med 09/10/20 23:56 Active 10 ml IV ASDIRECTED PRN Sodium Chloride 0.9% [Saline Flush] Med 09/10/20 23:56 Active 10 ml FLUSH ASDIRECTED PRN Sodium Chloride 0.9% [Saline Flush] Med 09/10/20 23:56 Active 2.5 ml FLUSH ASDIRECTED PRN fentaNYL [Sublimaze] Med 09/11/20 00:10 Active 50 mcg IVPUSH Q5M PRN Peripheral IV Insertion Adult [OM.PC] Urgent Oth 09/10/20 23:56 Ordered Sequential Compression Device [OM.PC] Per Unit Routine Oth 09/10/20 23:56 Ordered Medication Orders Fentanyl (Sublimaze) 50 mcg IVPUSH Q5M PRN PRN Reason: Pain Doxycycline Hyclate 200 mg/ (Dextrose/Water) 250 mls @ 125 mls/hr IV Q12H CYRUS Stop: 09/11/20 01:44 Last Admin: 09/11/20 00:26 Dose: 125 mls/hr Documented by: KLEIJOC Acetaminophen 1,000 mg/ Premix 100 mls @ 400 mls/hr IV Q6H PRN PRN Reason: Pain Sodium Chloride (Saline Flush) 10 ml FLUSH ASDIRECTED PRN PRN Reason: Keep Vein Open Sodium Chloride (Saline Flush) 2.5 ml FLUSH ASDIRECTED PRN PRN Reason: Keep Vein Open Sodium Chloride (Normal Saline) 10 ml IV ASDIRECTED PRN PRN Reason: IV Use Labs: Laboratory Tests 09/10/20 09/10/20 09/10/20 Range/Units 21:20 21:35 21:35 WBC 10.57 (4.0-11.0) K/uL RBC 4.24 L (4.30-5.90) M/uL Hgb 12.5 (12.0-16.0) g/dL Hct 37.3 (36.0-46.0) % MCV 88.0 (80.0-98.0) fL MCH 29.5 (27.0-32.0) pg MCHC 33.5 (31.0-37.0) g/dL RDW Std Deviation 46.7 (28.0-62.0) fl RDW Coeff of Yi 14 (11.0-15.0) % Plt Count 305 (150-400) K/uL MPV 8.90 (7.40-12.00) fL Neut % (Auto) 72.7 (48.0-80.0) % Lymph % (Auto) 20.0 (16.0-40.0) % [place] % (Auto) 4.4 (0.0-15.0) % Eos % (Auto) 2.6 (0.0-7.0) % Baso % (Auto) 0.3 (0.0-1.5) % Neut # (Auto) 7.7 H (1.4-5.7) K/uL Lymph # (Auto) 2.1 (0.6-2.4) K/uL [place] # (Auto) 0.5 (0.0-0.8) K/uL Eos # (Auto) 0.3 (0.0-0.7) K/uL Baso # (Auto) 0.0 (0.0-0.1) K/uL Nucleated RBC % 0.0 /100WBC Nucleated RBCs # 0 K/uL Sodium 136 (136-145) mmol/L Potassium 3.6 (3.5-5.1) mmol/L Chloride 103 (98-107) mmol/L Carbon Dioxide 24.8 (21.0-32.0) mmol/L BUN 12 (7.0-18.0) mg/dL Creatinine 0.9 (0.6-1.0) mg/dL Est Cr Clr Drug Dosing 71.78 mL/min Estimated GFR (MDRD) > 60.0 ml/min Glucose 107 H (74-106) mg/dL Calcium 9.4 (8.5-10.1) mg/dL Total Bilirubin 0.4 (0.2-1.0) mg/dL AST 11 L (15-37) IU/L ALT 14 (14-63) IU/L Alkaline Phosphatase 57 (46-116) U/L Total Protein 7.1 (6.4-8.2) g/dL Albumin 3.8 (3.4-5.0) g/dL Globulin 3.3 (2.6-4.0) g/dL Albumin/Globulin Ratio 1.2 (0.9-1.6) HCG, Quant mIU/mL Urine Color RED Urine Appearance CLOUDY Urine pH 6.0 (5.0-8.0) Ur Specific [place] 1.025 (1.001-1.035) Urine Protein 30 H (NEGATIVE) mg/dL Urine Glucose (UA) NEGATIVE (NEGATIVE) mg/dL Urine Ketones TRACE H (NEGATIVE) mg/dL Urine Occult Blood LARGE H (NEGATIVE) Urine Nitrite NEGATIVE (NEGATIVE) Urine Bilirubin NEGATIVE (NEGATIVE) Urine Urobilinogen 0.2 (<2.0) EU/dL Ur Leukocyte Esterase NEGATIVE (NEGATIVE) Urine RBC TOO NUMEROUS TO CT H (0-2/HPF) Urine WBC 0-3 (0-5/HPF) Ur Epithelial Cells RARE (NONE-FEW) Urine Bacteria RARE (NEGATIVE) SARS-CoV-2 RNA (CELIA) (NEGATIVE) Blood Type Antibody Screen 09/10/20 09/10/20 09/10/20 Range/Units 21:35 21:40 23:25 WBC (4.0-11.0) K/uL RBC (4.30-5.90) M/uL Hgb (12.0-16.0) g/dL Hct (36.0-46.0) % MCV (80.0-98.0) fL MCH (27.0-32.0) pg MCHC (31.0-37.0) g/dL RDW Std Deviation (28.0-62.0) fl RDW Coeff of Yi (11.0-15.0) % Plt Count (150-400) K/uL MPV (7.40-12.00) fL Neut % (Auto) (48.0-80.0) % Lymph % (Auto) (16.0-40.0) % [place] % (Auto) (0.0-15.0) % Eos % (Auto) (0.0-7.0) % Baso % (Auto) (0.0-1.5) % Neut # (Auto) (1.4-5.7) K/uL Lymph # (Auto) (0.6-2.4) K/uL [place] # (Auto) (0.0-0.8) K/uL Eos # (Auto) (0.0-0.7) K/uL Baso # (Auto) (0.0-0.1) K/uL Nucleated RBC % /100WBC Nucleated RBCs # K/uL Sodium (136-145) mmol/L Potassium (3.5-5.1) mmol/L Chloride (98-107) mmol/L Carbon Dioxide (21.0-32.0) mmol/L BUN (7.0-18.0) mg/dL Creatinine (0.6-1.0) mg/dL Est Cr Clr Drug Dosing mL/min Estimated GFR (MDRD) ml/min Glucose (74-106) mg/dL Calcium (8.5-10.1) mg/dL Total Bilirubin (0.2-1.0) mg/dL AST (15-37) IU/L ALT (14-63) IU/L Alkaline Phosphatase (46-116) U/L Total Protein (6.4-8.2) g/dL Albumin (3.4-5.0) g/dL Globulin (2.6-4.0) g/dL Albumin/Globulin Ratio (0.9-1.6) HCG, Quant 38606.0 mIU/mL Urine Color Urine Appearance Urine pH (5.0-8.0) Ur Specific [place] (1.001-1.035) Urine Protein (NEGATIVE) mg/dL Urine Glucose (UA) (NEGATIVE) mg/dL Urine Ketones (NEGATIVE) mg/dL Urine Occult Blood (NEGATIVE) Urine Nitrite (NEGATIVE) Urine Bilirubin (NEGATIVE) Urine Urobilinogen (<2.0) EU/dL Ur Leukocyte Esterase (NEGATIVE) Urine RBC (0-2/HPF) Urine WBC (0-5/HPF) Ur Epithelial Cells (NONE-FEW) Urine Bacteria (NEGATIVE) SARS-CoV-2 RNA (CELIA) POSITIVE H (NEGATIVE) Blood Type O POSITIVE Antibody Screen NEGATIVE Meds: Medications Generic Name Dose Route Start Last Admin Trade Name Johny PRN Reason Stop Dose Admin Fentanyl 50 mcg 09/11/20 00:10 Sublimaze IVPUSH Q5M PRN Pain Doxycycline Hyclate 200 mg/ 250 mls @ 125 mls/hr 09/10/20 23:45 09/11/20 00:26 Dextrose/Water IV 09/11/20 01:44 125 mls/hr Q12H CYRUS Administration Acetaminophen 1,000 mg/ Premix 100 mls @ 400 mls/hr 09/11/20 00:10 IV Q6H PRN Pain Sodium Chloride 10 ml 09/10/20 23:56 Saline Flush FLUSH ASDIRECTED PRN Keep Vein Open Sodium Chloride 2.5 ml 09/10/20 23:56 Saline Flush FLUSH ASDIRECTED PRN Keep Vein Open Sodium Chloride 10 ml 09/10/20 23:56 Normal Saline IV ASDIRECTED PRN IV Use Discontinued Medications Generic Name Dose Route Start Last Admin Trade Name Johny PRN Reason Stop Dose Admin Chloroprocaine HCl Confirm 09/11/20 00:17 Clorotekal Administered 09/11/20 00:18 Dose 5 ml .ROUTE .STK-MED ONE Fentanyl Confirm 09/11/20 00:02 Sublimaze Administered 09/11/20 00:03 Dose 100 mcg .ROUTE .STK-MED ONE Glycopyrrolate Confirm 09/11/20 00:03 Robinul Administered 09/11/20 00:04 Dose 0.2 mg .ROUTE .STK-MED ONE Tranexamic Acid 1,000 mg/ 110 mls @ 660 mls/hr 09/10/20 22:19 09/10/20 22:40 Sodium Chloride IV 09/10/20 22:28 660 mls/hr ONETIME ONE Administration Sodium Chloride 1,000 mls @ 999 mls/hr 09/10/20 22:22 09/10/20 22:24 Normal Saline IV 09/10/20 23:22 999 mls/hr .Bolus ONE Administration Ketorolac Tromethamine Confirm 09/11/20 00:03 Toradol Administered 09/11/20 00:04 Dose 30 mg .ROUTE .STK-MED ONE Lidocaine Confirm 09/11/20 00:03 Xylocaine-Mpf 2% Administered 09/11/20 00:04 Dose 5 ml .ROUTE .STK-MED ONE Midazolam HCl Confirm 09/11/20 00:02 Versed 1 Mg/Ml Administered 09/11/20 00:03 Dose 2 mg .ROUTE .STK-MED ONE Midazolam HCl Confirm 09/11/20 00:20 Versed 1 Mg/Ml Administered 09/11/20 00:21 Dose 2 mg .ROUTE .STK-MED ONE Ondansetron HCl Confirm 09/11/20 00:03 Zofran Administered 09/11/20 00:04 Dose 4 mg .ROUTE .STK-MED ONE Propofol Confirm 09/11/20 00:01 Diprivan 20 Ml Administered 09/11/20 00:02 Dose 200 mg .ROUTE .STK-MED ONE Tranexamic Acid Confirm 09/10/20 22:33 09/10/20 22:41 Cyklokapron Administered 09/10/20 22:34 Not Given Dose 1,000 mg .ROUTE .STK-MED ONE - Re-Assessments/Exams Free Text/Narrative Re-Assessment/Exam: 09/11/20 00:46 Pt at one point became hypotensive blood pressure was 60/40 patient was given 1 L of IV fluid pressure normalized. Call PIPE BENDING MACHINE OPERATOR came and saw patient at the bedside evaluating will take patient to the OR for D&C. Departure - Departure Time of Disposition: 00:47 Disposition: Still A Patient 30 Condition: Good Clinical Impression: Incomplete - Discharge Information *PRESCRIPTION DRUG MONITORING PROGRAM REVIEWED*: Not Applicable *COPY OF PRESCRIPTION DRUG MONITORING REPORT IN PATIENT ELBA: Not Applicable Sepsis Event Note (ED) - Evaluation Sepsis Screening Result: No Definite Risk - Focused Exam Vital Signs: Vital Signs Temp Pulse Resp BP Pulse Ox 09/10/20 22:48 86 18 123/76 100 09/10/20 22:31 77 18 124/95 H 100 09/10/20 22:27 81 18 123/75 100 09/10/20 22:26 81 18 71/33 L 100 09/10/20 22:04 110 H 18 123/85 98 09/10/20 21:10 98.6 F 92 18 135/86 96 - My Orders Last 24 Hours: My Active Orders 09/10/20 23:24 Admission Status [Patient Status] [ADT] Stat - Assessment/Plan Last 24 Hours: My Active Orders 09/10/20 23:24 Admission Status [Patient Status] [ADT] Stat Assessment:: Patient is a 45-year-old female who presents today for vaginal bleeding. Patient is believed to be 6 to 10 weeks . Patient was already scheduled for D&C this week but came in today because of profuse bleeding. Patient is not symptomatic from the bleeding. There was blood and clots on the vaginal exam. Will send for labs ultrasound and reassess.
[2020-09-10 22:07] LABS: BLOOD UREA NITROGEN,BUN 12 mg/dL (7.0-18.0); CARBON DIOXIDE,CO2 24.8 mmol/L (21.0-32.0); CHLORIDE,CL 103 mmol/L (98-107); GLUCOSE RANDOM 107 mg/dL (74-106); POTASSIUM,K 3.6 mmol/L (3.5-5.1); SODIUM,NA 136 mmol/L (136-145)
[2020-09-10] MEDS ORDERED: Tranexamic Acid 1,000 MG in Sodium Chloride 0.9% 100 ML IV ONE (22:19)
[2020-09-10] MEDS ORDERED: Sodium Chloride 0.9% 1,000 ML IV ONE (22:22)
--- NOTE | 2020-09-10 23:26 | US ---
INDICATION: BLEEDING, MISCARRYING OBSTETRICAL ULTRASOUND Technique: Transvaginal scanning of the pelvis was performed. Findings: There is a teardrop-shaped gestational sac within the cervix. The gestational sac contains a yolk sac and a very small embryonic pole with a crown-rump length of 0.24 centimeters. The crown-rump length corresponds to an estimated menstrual age of 5 weeks 5 days. No embryonic cardiac activity is visible, possibly due to the very early stage of gestation. The ovaries appear within normal limits bilaterally. No significant free pelvic fluid is identified. IMPRESSION: Very early gestational sac within the cervix, with a teardrop-shaped configuration to the gestational sac. This most likely represents a miscarriage in progress. Cervical ectopic is a less likely consideration. Repeat ultrasound in 2-3 days from now is recommended. [place] [facility] Dictated by Evan Wei MD @ 09/10/2020 11:18:42 PM Dictated by: Evan Wei MD @ 09/10/2020 23:25:01 (Electronically Signed)
[2020-09-10] MEDS ORDERED: Doxycycline 200 MG in Dextrose 5% in Water 250 ML IV SCH ×2 (23:45)
[2020-09-10] MEDS ORDERED: Sodium Chloride 0.9% 10 ML SDV IV PRN (23:56)
[2020-09-10] MEDS ORDERED: Sodium Chloride 0.9% 2.5 ML Syringe FLUSH PRN (23:56)
[2020-09-10] MEDS ORDERED: Sodium Chloride 0.9% 10 ML Syringe FLUSH PRN (23:56)
[2020-09-11] MEDS ORDERED: Propofol 200 MG/20 ML SDV ONE (00:01)
[2020-09-11] MEDS ORDERED: Midazolam 1 MG/ML 2 ML SDV ONE ×2 (00:02→00:20)
[2020-09-11] MEDS ORDERED: fentaNYL 100 MCG/2 ML SDV ONE (00:02)
[2020-09-11] MEDS ORDERED: Succinylcholine/Sod PF 100 MG/5 ML SYRINGE IV ONE (00:03)
[2020-09-11] MEDS ORDERED: Ondansetron 4 MG/2 ML SDV ONE (00:03)
[2020-09-11] MEDS ORDERED: Ketorolac 30 MG/ML SDV ONE (00:03)
[2020-09-11] MEDS ORDERED: Glycopyrrolate 0.2 MG/ML SDV ONE (00:03)
[2020-09-11] MEDS ORDERED: Lidocaine 2% 5 ML SDV ONE (00:03)
[2020-09-11] MEDS ORDERED: fentaNYL 100 MCG/2 ML SDV IVPUSH PRN (00:10)
[2020-09-11] MEDS ORDERED: Acetaminophen 1,000 MG in Premix Bag 1 BAG IV PRN (00:10)
--- NOTE | 2020-09-11 00:10 | PCM.HP.2 ---
H&P History of Present Illness - General Date of Service: 09/10/20 Admit Problem/Dx: Admission Diagnosis/Problem Admission Diagnosis/Problem , spontaneous incomplete with hemorrhage Source of Information: Patient History Limitations: Reports: No Limitations - History of Present Illness Initial Comments - Free Text/Narative: 45yo G15P(13)10(13) presenting with incomplete . Patient has diagnosis of missed , measuring 6 weeks on US with no FHR. She had a scheduled dilation and curettage for next week. She started bleeding tonight around 7PM, was very heavy with clots, soaking 1-2 large pads a hour that did not decrease. She presented to ED, was noted to be hypotensive, BP 70/30s, she was symptomatic and felt dizzy. She was given fluid bolus and 1g of TXA and responded, BP normalized. Hgb was 12. Hcg was 12,000, which decreased from 344,000 previously. Pelvic US showed GS at the cervix, no FHR was noted, measuring 5 week 6 days. PMHx: denies PSHx: wisdom tooth, x1 SH: smokes cigarettes 5/d, denies alcohol and recreational drug use OBHx: Hx of 10 NSVDs, 1 was 32wk demise, 1 x1, 2 VBACs ALL: NKDA - Related Data Allergies/Adverse Reactions: Allergies Allergy/AdvReac Type Severity Reaction Status Date / Time No Known Allergies Allergy Verified 09/10/20 21:17 Home Medications: Home Meds . 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 section - Infectious Disease History Infectious Disease History: Reports: Chicken Pox Social & Family History - Family History Family Medical History: No Pertinent Family History Cardiac: Reports: Stent Endocrine/Metabolic: Reports: Hypothyroidism - Tobacco Use Packs/Tins Daily: 0.5 - Caffeine Use Caffeine Use: Reports: None - Recreational Drug Use Recreational Drug Use: No H&P Review of Systems - Review of Systems: Review Of Systems: See Below General: Reports: Weakness HEENT: Reports: No Symptoms Pulmonary: Reports: No Symptoms Cardiovascular: Reports: No Symptoms Gastrointestinal: Reports: No Symptoms Genitourinary: Reports: Other (Vaginal bleeding) Musculoskeletal: Reports: No Symptoms Skin: Reports: No Symptoms Psychiatric: Reports: No Symptoms Neurological: Reports: No Symptoms Hematologic/Lymphatic: Reports: No Symptoms Immunologic: Reports: No Symptoms Exam - Exam Exam: See Below - Vital Signs Vital Signs: Last Vital Signs Temp 37.0 C 09/10/20 21:10 Pulse 86 09/10/20 22:48 Resp 18 09/10/20 22:48 BP 123/76 09/10/20 22:48 Pulse Ox 100 09/10/20 22:48 Weight: 150 lb - Exam General: Alert, Oriented, Cooperative, Mild Distress HEENT: Conjunctiva Clear Neck: Supple, Trachea Midline Lungs: Clear to Auscultation Cardiovascular: Regular Rate, Regular Rhythm GI/Abdominal Exam: Normal Bowel Sounds, Soft, Non-Tender, No Distention Back Exam: Normal Inspection Extremities: Normal Inspection, Normal Range of Motion, Non-Tender, No Pedal Edema Skin: Warm, Dry, Intact Neuro Extensive - Mental Status: Alert, Oriented x3, Normal Mood/Affect - Patient Data Lab Results Last 24 hrs: Laboratory Results - last 24 hr 09/10/20 09/10/20 09/10/20 Range/Units 21:20 21:35 21:35 WBC 10.57 (4.0-11.0) K/uL RBC 4.24 L (4.30-5.90) M/uL Hgb 12.5 (12.0-16.0) g/dL Hct 37.3 (36.0-46.0) % MCV 88.0 (80.0-98.0) fL MCH 29.5 (27.0-32.0) pg MCHC 33.5 (31.0-37.0) g/dL RDW Std Deviation 46.7 (28.0-62.0) fl RDW Coeff of Yi 14 (11.0-15.0) % Plt Count 305 (150-400) K/uL MPV 8.90 (7.40-12.00) fL Neut % (Auto) 72.7 (48.0-80.0) % Lymph % (Auto) 20.0 (16.0-40.0) % [place] % (Auto) 4.4 (0.0-15.0) % Eos % (Auto) 2.6 (0.0-7.0) % Baso % (Auto) 0.3 (0.0-1.5) % Neut # (Auto) 7.7 H (1.4-5.7) K/uL Lymph # (Auto) 2.1 (0.6-2.4) K/uL [place] # (Auto) 0.5 (0.0-0.8) K/uL Eos # (Auto) 0.3 (0.0-0.7) K/uL Baso # (Auto) 0.0 (0.0-0.1) K/uL Nucleated RBC % 0.0 /100WBC Nucleated RBCs # 0 K/uL Sodium 136 (136-145) mmol/L Potassium 3.6 (3.5-5.1) mmol/L Chloride 103 (98-107) mmol/L Carbon Dioxide 24.8 (21.0-32.0) mmol/L BUN 12 (7.0-18.0) mg/dL Creatinine 0.9 (0.6-1.0) mg/dL Est Cr Clr Drug Dosing 71.78 mL/min Estimated GFR (MDRD) > 60.0 ml/min Glucose 107 H (74-106) mg/dL Calcium 9.4 (8.5-10.1) mg/dL Total Bilirubin 0.4 (0.2-1.0) mg/dL AST 11 L (15-37) IU/L ALT 14 (14-63) IU/L Alkaline Phosphatase 57 (46-116) U/L Total Protein 7.1 (6.4-8.2) g/dL Albumin 3.8 (3.4-5.0) g/dL Globulin 3.3 (2.6-4.0) g/dL Albumin/Globulin Ratio 1.2 (0.9-1.6) HCG, Quant mIU/mL Urine Color RED Urine Appearance CLOUDY Urine pH 6.0 (5.0-8.0) Ur Specific [place] 1.025 (1.001-1.035) Urine Protein 30 H (NEGATIVE) mg/dL Urine Glucose (UA) NEGATIVE (NEGATIVE) mg/dL Urine Ketones TRACE H (NEGATIVE) mg/dL Urine Occult Blood LARGE H (NEGATIVE) Urine Nitrite NEGATIVE (NEGATIVE) Urine Bilirubin NEGATIVE (NEGATIVE) Urine Urobilinogen 0.2 (<2.0) EU/dL Ur Leukocyte Esterase NEGATIVE (NEGATIVE) Urine RBC TOO NUMEROUS TO CT H (0-2/HPF) Urine WBC 0-3 (0-5/HPF) Ur Epithelial Cells RARE (NONE-FEW) Urine Bacteria RARE (NEGATIVE) Blood Type 09/10/20 09/10/20 Range/Units 21:35 21:40 WBC (4.0-11.0) K/uL RBC (4.30-5.90) M/uL Hgb (12.0-16.0) g/dL Hct (36.0-46.0) % MCV (80.0-98.0) fL MCH (27.0-32.0) pg MCHC (31.0-37.0) g/dL RDW Std Deviation (28.0-62.0) fl RDW Coeff of Yi (11.0-15.0) % Plt Count (150-400) K/uL MPV (7.40-12.00) fL Neut % (Auto) (48.0-80.0) % Lymph % (Auto) (16.0-40.0) % [place] % (Auto) (0.0-15.0) % Eos % (Auto) (0.0-7.0) % Baso % (Auto) (0.0-1.5) % Neut # (Auto) (1.4-5.7) K/uL Lymph # (Auto) (0.6-2.4) K/uL [place] # (Auto) (0.0-0.8) K/uL Eos # (Auto) (0.0-0.7) K/uL Baso # (Auto) (0.0-0.1) K/uL Nucleated RBC % /100WBC Nucleated RBCs # K/uL Sodium (136-145) mmol/L Potassium (3.5-5.1) mmol/L Chloride (98-107) mmol/L Carbon Dioxide (21.0-32.0) mmol/L BUN (7.0-18.0) mg/dL Creatinine (0.6-1.0) mg/dL Est Cr Clr Drug Dosing mL/min Estimated GFR (MDRD) ml/min Glucose (74-106) mg/dL Calcium (8.5-10.1) mg/dL Total Bilirubin (0.2-1.0) mg/dL AST (15-37) IU/L ALT (14-63) IU/L Alkaline Phosphatase (46-116) U/L Total Protein (6.4-8.2) g/dL Albumin (3.4-5.0) g/dL Globulin (2.6-4.0) g/dL Albumin/Globulin Ratio (0.9-1.6) HCG, Quant 61151.0 mIU/mL Urine Color Urine Appearance Urine pH (5.0-8.0) Ur Specific [place] (1.001-1.035) Urine Protein (NEGATIVE) mg/dL Urine Glucose (UA) (NEGATIVE) mg/dL Urine Ketones (NEGATIVE) mg/dL Urine Occult Blood (NEGATIVE) Urine Nitrite (NEGATIVE) Urine Bilirubin (NEGATIVE) Urine Urobilinogen (<2.0) EU/dL Ur Leukocyte Esterase (NEGATIVE) Urine RBC (0-2/HPF) Urine WBC (0-5/HPF) Ur Epithelial Cells (NONE-FEW) Urine Bacteria (NEGATIVE) Blood Type O POSITIVE Result Diagrams: 09/10/20 21:35 09/10/20 21:35 Sepsis Event Note - Evaluation Sepsis Screening Result: No Definite Risk - Focused Exam Vital Signs: Vital Signs Temp Pulse Resp BP Pulse Ox 09/10/20 22:48 86 18 123/76 100 09/10/20 22:31 77 18 124/95 H 100 09/10/20 22:27 81 18 123/75 100 09/10/20 22:26 81 18 71/33 L 100 09/10/20 22:04 110 H 18 123/85 98 09/10/20 21:10 37.0 C 92 18 135/86 96 Problem List Initiated/Reviewed/Updated: Yes Orders Last 24hrs: Active Orders 24 hr Category Date Time Status Admission Status [Patient Status] [ADT] Stat ADT 09/10/20 23:24 Active Patient Status [ADT] Routine ADT 09/10/20 23:56 Active Antiembolic Devices [RC] PER UNIT ROUTINE Care 09/10/20 23:57 Active Verify Patient Consent Obtain [RC] PER UNIT ROUTINE Care 09/10/20 23:56 Active Vital Signs [RC] PER UNIT ROUTINE Care 09/10/20 23:56 Active ABO/RH TYPE [BBK] Stat Lab 09/10/20 21:40 Results ANTIBODY SCREEN (KYLE) [BBK] Stat Lab 09/10/20 21:40 Results CBC W/O DIFF,HEMOGRAM [HEME] Routine Lab 09/11/20 04:00 Ordered CORONAVIRUS COVID-19 CELIA [MOLEC] Stat Lab 09/10/20 23:25 Received Doxycycline [Vibramycin] 200 mg Med 09/10/20 23:45 Active Dextrose 5% in Water 250 ml IV Q12H Sodium Chloride 0.9% [Normal Saline] Med 09/10/20 23:56 Active 10 ml IV ASDIRECTED PRN Sodium Chloride 0.9% [Saline Flush] Med 09/10/20 23:56 Active 10 ml FLUSH ASDIRECTED PRN Sodium Chloride 0.9% [Saline Flush] Med 09/10/20 23:56 Active 2.5 ml FLUSH ASDIRECTED PRN Peripheral IV Insertion Adult [OM.PC] Urgent Oth 09/10/20 23:56 Ordered Sequential Compression Device [OM.PC] Per Unit Routine Oth 09/10/20 23:56 Ordered Medication Orders Doxycycline Hyclate 200 mg/ (Dextrose/Water) 250 mls @ 125 mls/hr IV Q12H CYRUS Stop: 09/11/20 01:44 Sodium Chloride (Saline Flush) 10 ml FLUSH ASDIRECTED PRN PRN Reason: Keep Vein Open Sodium Chloride (Saline Flush) 2.5 ml FLUSH ASDIRECTED PRN PRN Reason: Keep Vein Open Sodium Chloride (Normal Saline) 10 ml IV ASDIRECTED PRN PRN Reason: IV Use Assessment/Plan Comment:: 45yo G15P(13)10(13) presenting with incomplete and hemorrhage. - having heavy vaginal bleeding with unstable vital signs, did respond to IVF ang TXA 1g - TVUS confirmed GS and 5w6d IUP with no FHR at the cervix - Hgb 12.5 - blood type Rh+ - COVID19 rapid test was positive, currently asymptomatic, reports was exposed 2 months ago when her son was positive. Discussed with patient since her vitals has improved, can monitor closely and expectantly manage or give cytotec or proceed with suction dilation and curettage to stop further hemorrhage. She desires to proceed with D&C, reviewed risk of procedure includes bleeding, infection, DVTs, injury to surround organs, including bladder, bowel, ureters. Questions answered and consent signed. OR team and anesthesia informed, proceed to OR urgently. Will have spinal anes thesia to decrease risk of respiratory complications per anesthesia team. - Mortality Measure Prognosis:: Good
--- NOTE | 2020-09-11 00:10 | PCM.PREANE ---
Preanesthetic Assessment - Anesthesia/Transfusion/Family Hx Anesthesia History: Prior Anesthesia Without Reaction Family History of Anesthesia Reaction: No Transfusion History: No Prior Transfusion(s) - Physical Assessment NPO Status Date: 09/10/20 NPO Status Time: 19:00 Vital Signs: Last Vital Signs Temp 37.0 C 09/10/20 21:10 Pulse 86 09/10/20 22:48 Resp 18 09/10/20 22:48 BP 123/76 09/10/20 22:48 Pulse Ox 100 09/10/20 22:48 Height: 1.65 m Weight: 68.039 kg ASA Class: 2E - Lab Values: Laboratory Last Values WBC 10.57 K/uL (4.0-11.0) 09/10/20 21:35 RBC 4.24 M/uL (4.30-5.90) L 09/10/20 21:35 Hgb 12.5 g/dL (12.0-16.0) 09/10/20 21:35 Hct 37.3 % (36.0-46.0) 09/10/20 21:35 MCV 88.0 fL (80.0-98.0) 09/10/20 21:35 MCH 29.5 pg (27.0-32.0) 09/10/20 21:35 MCHC 33.5 g/dL (31.0-37.0) 09/10/20 21:35 RDW Std Deviation 46.7 fl (28.0-62.0) 09/10/20 21:35 RDW Coeff of Yi 14 % (11.0-15.0) 09/10/20 21:35 Plt Count 305 K/uL (150-400) 09/10/20 21:35 MPV 8.90 fL (7.40-12.00) 09/10/20 21:35 Neut % (Auto) 72.7 % (48.0-80.0) 09/10/20 21:35 Lymph % (Auto) 20.0 % (16.0-40.0) 09/10/20 21:35 [place] % (Auto) 4.4 % (0.0-15.0) 09/10/20 21:35 Eos % (Auto) 2.6 % (0.0-7.0) 09/10/20 21:35 Baso % (Auto) 0.3 % (0.0-1.5) 09/10/20 21:35 Neut # (Auto) 7.7 K/uL (1.4-5.7) H 09/10/20 21:35 Lymph # (Auto) 2.1 K/uL (0.6-2.4) 09/10/20 21:35 [place] # (Auto) 0.5 K/uL (0.0-0.8) 09/10/20 21:35 Eos # (Auto) 0.3 K/uL (0.0-0.7) 09/10/20 21:35 Baso # (Auto) 0.0 K/uL (0.0-0.1) 09/10/20 21:35 Nucleated RBC % 0.0 /100WBC 09/10/20 21:35 Nucleated RBCs # 0 K/uL 09/10/20 21:35 Sodium 136 mmol/L (136-145) 09/10/20 21:35 Potassium 3.6 mmol/L (3.5-5.1) 09/10/20 21:35 Chloride 103 mmol/L (98-107) 09/10/20 21:35 Carbon Dioxide 24.8 mmol/L (21.0-32.0) 09/10/20 21:35 BUN 12 mg/dL (7.0-18.0) 09/10/20 21:35 Creatinine 0.9 mg/dL (0.6-1.0) 09/10/20 21:35 Est Cr Clr Drug Dosing 71.78 mL/min 09/10/20 21:35 Estimated GFR (MDRD) > 60.0 ml/min 09/10/20 21:35 Glucose 107 mg/dL (74-106) H 09/10/20 21:35 Calcium 9.4 mg/dL (8.5-10.1) 09/10/20 21:35 Total Bilirubin 0.4 mg/dL (0.2-1.0) 09/10/20 21:35 AST 11 IU/L (15-37) L 09/10/20 21:35 ALT 14 IU/L (14-63) 09/10/20 21:35 Alkaline Phosphatase 57 U/L (46-116) 09/10/20 21:35 Total Protein 7.1 g/dL (6.4-8.2) 09/10/20 21:35 Albumin 3.8 g/dL (3.4-5.0) 09/10/20 21:35 Globulin 3.3 g/dL (2.6-4.0) 09/10/20 21:35 Albumin/Globulin Ratio 1.2 (0.9-1.6) 09/10/20 21:35 HCG, Quant 75491.0 mIU/mL 09/10/20 21:35 Urine Color RED 09/10/20 21:20 Urine Appearance CLOUDY 09/10/20 21:20 Urine pH 6.0 (5.0-8.0) 09/10/20 21:20 Ur Specific [place] 1.025 (1.001-1.035) 09/10/20 21:20 Urine Protein 30 mg/dL (NEGATIVE) H 09/10/20 21:20 Urine Glucose (UA) NEGATIVE mg/dL (NEGATIVE) 09/10/20 21:20 Urine Ketones TRACE mg/dL (NEGATIVE) H 09/10/20 21:20 Urine Occult Blood LARGE (NEGATIVE) H 09/10/20 21:20 Urine Nitrite NEGATIVE (NEGATIVE) 09/10/20 21:20 Urine Bilirubin NEGATIVE (NEGATIVE) 09/10/20 21:20 Urine Urobilinogen 0.2 EU/dL (<2.0) 09/10/20 21:20 Ur Leukocyte Esterase NEGATIVE (NEGATIVE) 09/10/20 21:20 Urine RBC TOO NUMEROUS TO CT (0-2/HPF) H 09/10/20 21:20 Urine WBC 0-3 (0-5/HPF) 09/10/20 21:20 Ur Epithelial Cells RARE (NONE-FEW) 09/10/20 21:20 Urine Bacteria RARE (NEGATIVE) 09/10/20 21:20 Blood Type O POSITIVE 09/10/20 21:40 - Allergies Allergies/Adverse Reactions: Allergies Allergy/AdvReac Type Severity Reaction Status Date / Time No Known Allergies Allergy Verified 09/10/20 21:17 - Acknowledgements Anesthesia Type Planned: General Anesthesia Pt an Appropriate Candidate for the Planned Anesthesia: Yes Alternatives and Risks of Anesthesia Discussed w Pt/Guardian: Yes Pt/Guardian Understands and Agrees with Anesthesia Plan: Yes PreAnesthesia Questionnaire - Past Health History Medical/Surgical History: Denies 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 section - Infectious Disease History Infectious Disease History: Reports: Chicken Pox - SUBSTANCE USE Tobacco Use Within Last Twelve Months: Cigarettes Recreational Drug Use History: No - HOME MEDS Home Medications: Home Meds . [No Known Home Meds] 09/10/20 [History] - CURRENT (IN HOUSE) MEDS Current Meds: Current Medications Doxycycline Hyclate 200 mg/ (Dextrose/Water) 250 mls @ 125 mls/hr IV Q12H CYRUS Stop: 09/11/20 01:44 Sodium Chloride (Saline Flush) 10 ml FLUSH ASDIRECTED PRN PRN Reason: Keep Vein Open Sodium Chloride (Saline Flush) 2.5 ml FLUSH ASDIRECTED PRN PRN Reason: Keep Vein Open Sodium Chloride (Normal Saline) 10 ml IV ASDIRECTED PRN PRN Reason: IV Use Discontinued Medications Fentanyl (Sublimaze) Confirm Administered Dose 100 mcg .ROUTE .STK-MED ONE Stop: 09/11/20 00:03 Glycopyrrolate (Robinul) Confirm Administered Dose 0.2 mg .ROUTE .STK-MED ONE Stop: 09/11/20 00:04 Tranexamic Acid 1,000 mg/ (Sodium Chloride) 110 mls @ 660 mls/hr IV ONETIME ONE Stop: 09/10/20 22:28 Last Admin: 09/10/20 22:40 Dose: 660 mls/hr Documented by: Sodium Chloride (Normal Saline) 1,000 mls @ 999 mls/hr IV .Bolus ONE Stop: 09/10/20 23:22 Last Admin: 09/10/20 22:24 Dose: 999 mls/hr Documented by: Ketorolac Tromethamine (Toradol) Confirm Administered Dose 30 mg .ROUTE .STK-MED ONE Stop: 09/11/20 00:04 Lidocaine (Xylocaine-Mpf 2%) Confirm Administered Dose 5 ml .ROUTE .STK-MED ONE Stop: 09/11/20 00:04 Midazolam HCl (Versed 1 Mg/Ml) Confirm Administered Dose 2 mg .ROUTE .STK-MED ONE Stop: 09/11/20 00:03 Ondansetron HCl (Zofran) Confirm Administered Dose 4 mg .ROUTE .STK-MED ONE Stop: 09/11/20 00:04 Propofol (Diprivan 20 Ml) Confirm Administered Dose 200 mg .ROUTE .STK-MED ONE Stop: 09/11/20 00:02 Tranexamic Acid (Cyklokapron) Confirm Administered Dose 1,000 mg .ROUTE .STK-MED ONE Stop: 09/10/20 22:34 Last Admin: 09/10/20 22:41 Dose: Not Given Documented by:
[2020-09-11] MEDS ORDERED: Chloroprocaine 10 MG/ML 5 ML Amp ONE (00:17)
[2020-09-11] MEDS ORDERED: Methylergonovine 0.2 MG/1 ML Amp ONE (01:16)
[2020-09-11] MEDS ORDERED: Promethazine 25 MG/ML SDV IM PRN (01:54)
[2020-09-11] MEDS ORDERED: Ondansetron 4 MG/2 ML SDV IVPUSH PRN (01:54)
[2020-09-11] MEDS ORDERED: Acetaminophen/oxyCODONE 325-5 MG Tab PO PRN ×2 (01:54)
[2020-09-11] MEDS ORDERED: Morphine 4 MG/ML Syringe IVPUSH PRN (01:54)
--- NOTE | 2020-09-11 01:57 | PCM.POSTAN ---
POST ANESTHESIA ASSESSMENT - MENTAL STATUS Mental Status: Alert - VITAL SIGNS Vital Signs: Last Vital Signs Temp 37.0 C 09/10/20 21:10 Pulse 86 09/10/20 22:48 Resp 18 09/10/20 22:48 BP 123/76 09/10/20 22:48 Pulse Ox 100 09/10/20 22:48 - RESPIRATORY Respiratory Status: Respiratory Rate WNL - CARDIOVASCULAR CV Status: Pulse Rate WNL - GASTROINTESTINAL GI Status: No Symptoms - POST OP HYDRATION Hydration Status: Adequate & Stable
--- NOTE | 2020-09-11 02:01 | PCM.OPNOTE ---
- General Post-Op/Procedure Note Date of Surgery/Procedure: 09/11/20 Operative Procedure(s): Suction Dilation and Curettage Findings: Cervix dilated with POCs at the cervical os, uterus about 6 weeks size. Pre Op Diagnosis: Incomplete with hemorrhage Post-Op Diagnosis: Incomplete with hemorrhage Anesthesia Technique: Spinal Primary Surgeon: Kaleb Tubbs Anesthesia Provider: Elpidio Iglesias Pathology: Products of conception EBL in mLs: 200 Complications: None Condition: Stable Free Text/Narrative:: Repeat CBC in AM.
[2020-09-11] MEDS ORDERED: Ketorolac 30 MG/ML SDV IVPUSH PRN (07:00)
--- NOTE | 2020-09-11 07:57 | PCM48HPAN ---
Post Anesthesia Note - EVALUATION WITHIN 48HRS OF ANESTHETIC Vital Signs in Normal Range: Yes Patient Participated in Evaluation: Yes Respiratory Function Stable: Yes Airway Patent: Yes Cardiovascular Function Stable: Yes Hydration Status Stable: Yes Pain Control Satisfactory: Yes Nausea and Vomiting Control Satisfactory: Yes Mental Status Recovered: Yes Vital Signs: Last Vital Signs Temp 36.6 C 09/11/20 02:05 Pulse 70 09/11/20 06:00 Resp 16 09/11/20 06:00 BP 96/57 L 09/11/20 06:00 Pulse Ox 99 09/11/20 06:00 - COMMENTS/OBSERVATIONS Free Text/Narrative:: The patient has no complaints at this time. She is awake, and is in no acute distress. There were no apparent anesthetic complications at this time. Discharge from anesthesia service.
[2020-09-11] MEDS ORDERED: Sodium Chloride 0.9% 1,000 ML IV ONE (09:36)
--- NOTE | 2020-09-11 10:16 | PCM.PN ---
- General Info Date of Service: 09/11/20 Functional Status: Reports: Pain Controlled, Tolerating Diet, Ambulating, Urinating, Other (Bleeding is light. ) - Review of Systems General: Reports: No Symptoms HEENT: Reports: No Symptoms Pulmonary: Reports: No Symptoms Cardiovascular: Reports: No Symptoms Gastrointestinal: Reports: No Symptoms Genitourinary: Reports: No Symptoms Musculoskeletal: Reports: No Symptoms Skin: Reports: No Symptoms Neurological: Reports: No Symptoms Psychiatric: Reports: No Symptoms - Patient Data Vitals - Most Recent: Last Vital Signs Temp 36.3 C 09/11/20 08:48 Pulse 65 09/11/20 08:48 Resp 16 09/11/20 08:48 BP 101/59 L 09/11/20 08:48 Pulse Ox 99 09/11/20 08:48 Weight - Most Recent: 150 lb I&O - Last 24 Hours: Intake & Output 09/10/20 09/11/20 09/11/20 22:59 06:59 14:59 Intake Total 550 Output Total 1000 Balance -450 Lab Results Last 24 Hours: Laboratory Results - last 24 hr 09/10/20 09/10/20 09/10/20 Range/Units 21:20 21:35 21:35 WBC 10.57 (4.0-11.0) K/uL RBC 4.24 L (4.30-5.90) M/uL Hgb 12.5 (12.0-16.0) g/dL Hct 37.3 (36.0-46.0) % MCV 88.0 (80.0-98.0) fL MCH 29.5 (27.0-32.0) pg MCHC 33.5 (31.0-37.0) g/dL RDW Std Deviation 46.7 (28.0-62.0) fl RDW Coeff of Yi 14 (11.0-15.0) % Plt Count 305 (150-400) K/uL MPV 8.90 (7.40-12.00) fL Neut % (Auto) 72.7 (48.0-80.0) % Lymph % (Auto) 20.0 (16.0-40.0) % Thayer % (Auto) 4.4 (0.0-15.0) % Eos % (Auto) 2.6 (0.0-7.0) % Baso % (Auto) 0.3 (0.0-1.5) % Neut # (Auto) 7.7 H (1.4-5.7) K/uL Lymph # (Auto) 2.1 (0.6-2.4) K/uL Thayer # (Auto) 0.5 (0.0-0.8) K/uL Eos # (Auto) 0.3 (0.0-0.7) K/uL Baso # (Auto) 0.0 (0.0-0.1) K/uL Nucleated RBC % 0.0 /100WBC Nucleated RBCs # 0 K/uL Sodium 136 (136-145) mmol/L Potassium 3.6 (3.5-5.1) mmol/L Chloride 103 (98-107) mmol/L Carbon Dioxide 24.8 (21.0-32.0) mmol/L BUN 12 (7.0-18.0) mg/dL Creatinine 0.9 (0.6-1.0) mg/dL Est Cr Clr Drug Dosing 71.78 mL/min Estimated GFR (MDRD) > 60.0 ml/min Glucose 107 H (74-106) mg/dL Calcium 9.4 (8.5-10.1) mg/dL Total Bilirubin 0.4 (0.2-1.0) mg/dL AST 11 L (15-37) IU/L ALT 14 (14-63) IU/L Alkaline Phosphatase 57 (46-116) U/L Total Protein 7.1 (6.4-8.2) g/dL Albumin 3.8 (3.4-5.0) g/dL Globulin 3.3 (2.6-4.0) g/dL Albumin/Globulin Ratio 1.2 (0.9-1.6) HCG, Quant mIU/mL Urine Color RED Urine Appearance CLOUDY Urine pH 6.0 (5.0-8.0) Ur Specific [place] 1.025 (1.001-1.035) Urine Protein 30 H (NEGATIVE) mg/dL Urine Glucose (UA) NEGATIVE (NEGATIVE) mg/dL Urine Ketones TRACE H (NEGATIVE) mg/dL Urine Occult Blood LARGE H (NEGATIVE) Urine Nitrite NEGATIVE (NEGATIVE) Urine Bilirubin NEGATIVE (NEGATIVE) Urine Urobilinogen 0.2 (<2.0) EU/dL Ur Leukocyte Esterase NEGATIVE (NEGATIVE) Urine RBC TOO NUMEROUS TO CT H (0-2/HPF) Urine WBC 0-3 (0-5/HPF) Ur Epithelial Cells RARE (NONE-FEW) Urine Bacteria RARE (NEGATIVE) SARS-CoV-2 RNA (CELIA) (NEGATIVE) Blood Type Antibody Screen 09/10/20 09/10/20 09/10/20 Range/Units 21:35 21:40 23:25 WBC (4.0-11.0) K/uL RBC (4.30-5.90) M/uL Hgb (12.0-16.0) g/dL Hct (36.0-46.0) % MCV (80.0-98.0) fL MCH (27.0-32.0) pg MCHC (31.0-37.0) g/dL RDW Std Deviation (28.0-62.0) fl RDW Coeff of Yi (11.0-15.0) % Plt Count (150-400) K/uL MPV (7.40-12.00) fL Neut % (Auto) (48.0-80.0) % Lymph % (Auto) (16.0-40.0) % Thayer % (Auto) (0.0-15.0) % Eos % (Auto) (0.0-7.0) % Baso % (Auto) (0.0-1.5) % Neut # (Auto) (1.4-5.7) K/uL Lymph # (Auto) (0.6-2.4) K/uL Thayer # (Auto) (0.0-0.8) K/uL Eos # (Auto) (0.0-0.7) K/uL Baso # (Auto) (0.0-0.1) K/uL Nucleated RBC % /100WBC Nucleated RBCs # K/uL Sodium (136-145) mmol/L Potassium (3.5-5.1) mmol/L Chloride (98-107) mmol/L Carbon Dioxide (21.0-32.0) mmol/L BUN (7.0-18.0) mg/dL Creatinine (0.6-1.0) mg/dL Est Cr Clr Drug Dosing mL/min Estimated GFR (MDRD) ml/min Glucose (74-106) mg/dL Calcium (8.5-10.1) mg/dL Total Bilirubin (0.2-1.0) mg/dL AST (15-37) IU/L ALT (14-63) IU/L Alkaline Phosphatase (46-116) U/L Total Protein (6.4-8.2) g/dL Albumin (3.4-5.0) g/dL Globulin (2.6-4.0) g/dL Albumin/Globulin Ratio (0.9-1.6) HCG, Quant 24965.0 mIU/mL Urine Color Urine Appearance Urine pH (5.0-8.0) Ur Specific [place] (1.001-1.035) Urine Protein (NEGATIVE) mg/dL Urine Glucose (UA) (NEGATIVE) mg/dL Urine Ketones (NEGATIVE) mg/dL Urine Occult Blood (NEGATIVE) Urine Nitrite (NEGATIVE) Urine Bilirubin (NEGATIVE) Urine Urobilinogen (<2.0) EU/dL Ur Leukocyte Esterase (NEGATIVE) Urine RBC (0-2/HPF) Urine WBC (0-5/HPF) Ur Epithelial Cells (NONE-FEW) Urine Bacteria (NEGATIVE) SARS-CoV-2 RNA (CELIA) POSITIVE H (NEGATIVE) Blood Type O POSITIVE Antibody Screen NEGATIVE 09/11/20 Range/Units 04:13 WBC 9.43 (4.0-11.0) K/uL RBC 3.27 L (4.30-5.90) M/uL Hgb 9.6 L (12.0-16.0) g/dL Hct 28.9 L (36.0-46.0) % MCV 88.4 (80.0-98.0) fL MCH 29.4 (27.0-32.0) pg MCHC 33.2 (31.0-37.0) g/dL RDW Std Deviation 47.1 (28.0-62.0) fl RDW Coeff of Yi 14 (11.0-15.0) % Plt Count 224 (150-400) K/uL MPV 9.00 (7.40-12.00) fL Neut % (Auto) (48.0-80.0) % Lymph % (Auto) (16.0-40.0) % Thayer % (Auto) (0.0-15.0) % Eos % (Auto) (0.0-7.0) % Baso % (Auto) (0.0-1.5) % Neut # (Auto) (1.4-5.7) K/uL Lymph # (Auto) (0.6-2.4) K/uL Thayer # (Auto) (0.0-0.8) K/uL Eos # (Auto) (0.0-0.7) K/uL Baso # (Auto) (0.0-0.1) K/uL Nucleated RBC % 0.0 /100WBC Nucleated RBCs # 0 K/uL Sodium (136-145) mmol/L Potassium (3.5-5.1) mmol/L Chloride (98-107) mmol/L Carbon Dioxide (21.0-32.0) mmol/L BUN (7.0-18.0) mg/dL Creatinine (0.6-1.0) mg/dL Est Cr Clr Drug Dosing mL/min Estimated GFR (MDRD) ml/min Glucose (74-106) mg/dL Calcium (8.5-10.1) mg/dL Total Bilirubin (0.2-1.0) mg/dL AST (15-37) IU/L ALT (14-63) IU/L Alkaline Phosphatase (46-116) U/L Total Protein (6.4-8.2) g/dL Albumin (3.4-5.0) g/dL Globulin (2.6-4.0) g/dL Albumin/Globulin Ratio (0.9-1.6) HCG, Quant mIU/mL Urine Color Urine Appearance Urine pH (5.0-8.0) Ur Specific [place] (1.001-1.035) Urine Protein (NEGATIVE) mg/dL Urine Glucose (UA) (NEGATIVE) mg/dL Urine Ketones (NEGATIVE) mg/dL Urine Occult Blood (NEGATIVE) Urine Nitrite (NEGATIVE) Urine Bilirubin (NEGATIVE) Urine Urobilinogen (<2.0) EU/dL Ur Leukocyte Esterase (NEGATIVE) Urine RBC (0-2/HPF) Urine WBC (0-5/HPF) Ur Epithelial Cells (NONE-FEW) Urine Bacteria (NEGATIVE) SARS-CoV-2 RNA (CELIA) (NEGATIVE) Blood Type Antibody Screen Med Orders - Current: Current Medications Fentanyl (Sublimaze) 50 mcg IVPUSH Q5M PRN PRN Reason: Pain Acetaminophen 1,000 mg/ Premix 100 mls @ 400 mls/hr IV Q6H PRN PRN Reason: Pain Sodium Chloride (Normal Saline) 1,000 mls @ 999 mls/hr IV .Bolus ONE Stop: 09/11/20 10:36 Ketorolac Tromethamine (Toradol) 30 mg IVPUSH Q6H PRN PRN Reason: Pain (severe 7-10) Stop: 09/16/20 01:54 Morphine Sulfate (Morphine) 4 mg IVPUSH Q2H PRN PRN Reason: Pain (severe 7-10) Ondansetron HCl (Zofran) 4 mg IVPUSH Q6H PRN PRN Reason: Nausea/Vomiting Oxycodone/Acetaminophen (Percocet 325-5 Mg) 1 tab PO Q4H PRN PRN Reason: Pain (moderate 4-6) Oxycodone/Acetaminophen (Percocet 325-5 Mg) 2 tab PO Q4H PRN PRN Reason: Pain (moderate 4-6) Promethazine HCl (Phenergan) 25 mg IM Q6H PRN PRN Reason: Nausea/Vomiting Sodium Chloride (Saline Flush) 10 ml FLUSH ASDIRECTED PRN PRN Reason: Keep Vein Open Sodium Chloride (Saline Flush) 2.5 ml FLUSH ASDIRECTED PRN PRN Reason: Keep Vein Open Sodium Chloride (Normal Saline) 10 ml IV ASDIRECTED PRN PRN Reason: IV Use Discontinued Medications Chloroprocaine HCl (Clorotekal) Confirm Administered Dose 5 ml .ROUTE .STK-MED ONE Stop: 09/11/20 00:18 Fentanyl (Sublimaze) Confirm Administered Dose 100 mcg .ROUTE .STK-MED ONE Stop: 09/11/20 00:03 Glycopyrrolate (Robinul) Confirm Administered Dose 0.2 mg .ROUTE .STK-MED ONE Stop: 09/11/20 00:04 Tranexamic Acid 1,000 mg/ (Sodium Chloride) 110 mls @ 660 mls/hr IV ONETIME ONE Stop: 09/10/20 22:28 Last Admin: 09/10/20 22:40 Dose: 660 mls/hr Documented by: Sodium Chloride (Normal Saline) 1,000 mls @ 999 mls/hr IV .Bolus ONE Stop: 09/10/20 23:22 Last Admin: 09/10/20 22:24 Dose: 999 mls/hr Documented by: Doxycycline Hyclate 200 mg/ (Dextrose/Water) 250 mls @ 125 mls/hr IV Q12H CYRUS Stop: 09/11/20 01:44 Last Admin: 09/11/20 00:26 Dose: 125 mls/hr Documented by: Ketorolac Tromethamine (Toradol) Confirm Administered Dose 30 mg .ROUTE .STK-MED ONE Stop: 09/11/20 00:04 Lidocaine (Xylocaine-Mpf 2%) Confirm Administered Dose 5 ml .ROUTE .STK-MED ONE Stop: 09/11/20 00:04 Methylergonovine Maleate (Methergine) Confirm Administered Dose 0.2 mg .ROUTE .STK-MED ONE Stop: 09/11/20 01:17 Midazolam HCl (Versed 1 Mg/Ml) Confirm Administered Dose 2 mg .ROUTE .STK-MED ONE Stop: 09/11/20 00:03 Midazolam HCl (Versed 1 Mg/Ml) Confirm Administered Dose 2 mg .ROUTE .STK-MED ONE Stop: 09/11/20 00:21 Ondansetron HCl (Zofran) Confirm Administered Dose 4 mg .ROUTE .STK-MED ONE Stop: 09/11/20 00:04 Propofol (Diprivan 20 Ml) Confirm Administered Dose 200 mg .ROUTE .STK-MED ONE Stop: 09/11/20 00:02 Tranexamic Acid (Cyklokapron) Confirm Administered Dose 1,000 mg .ROUTE .STK-MED ONE Stop: 09/10/20 22:34 Last Admin: 09/10/20 22:41 Dose: Not Given Documented by: - Exam General: Alert, Oriented, Cooperative, No Acute Distress HEENT: Pupils Equal, Pupils Reactive, EOMI Neck: Supple, Trachea Midline, No JVD Lungs: Clear to Auscultation Cardiovascular: Regular Rate, Regular Rhythm, No Murmurs GI/Abdominal Exam: Normal Bowel Sounds, Soft, Non-Tender, No Distention Back Exam: Normal Inspection Extremities: Normal Inspection, Normal Range of Motion, Non-Tender, No Pedal Edema Skin: Warm, Dry, Intact Neurological: No New Focal Deficit Psy/Mental Status: Alert, Normal Affect, Normal Mood Sepsis Event Note - Evaluation Sepsis Screening Result: No Definite Risk - Focused Exam Vital Signs: Vital Signs Temp Pulse Resp BP Pulse Ox 09/11/20 08:48 36.3 C 65 16 101/59 L 99 09/11/20 06:00 70 16 96/57 L 99 09/11/20 05:20 71 17 99/60 98 09/11/20 04:20 66 16 100/56 L 99 09/11/20 03:50 79 19 94/59 L 97 09/11/20 03:20 67 15 96/64 97 09/11/20 02:50 67 17 103/66 98 09/11/20 02:35 62 16 109/62 96 09/11/20 02:20 66 17 111/68 99 09/11/20 02:05 36.6 C 68 18 115/58 L 97 09/11/20 01:52 64 15 111/68 100 09/11/20 01:47 66 15 106/65 99 09/11/20 01:42 67 15 112/68 100 09/11/20 01:37 76 14 114/75 100 09/11/20 01:32 72 11 L 109/65 100 09/11/20 01:29 36.5 C 85 15 105/60 99 09/10/20 22:48 86 18 123/76 100 09/10/20 22:31 77 18 124/95 H 100 09/10/20 22:27 81 18 123/75 100 09/10/20 22:26 81 18 71/33 L 100 - Problem List Review Problem List Initiated/Reviewed/Updated: Yes - My Orders Last 24 Hours: My Active Orders 09/10/20 23:56 Patient Status [ADT] Routine Verify Patient Consent Obtain [RC] PER UNIT ROUTINE Vital Signs [RC] PER UNIT ROUTINE Sodium Chloride 0.9% [Normal Saline] 10 ml IV ASDIRECTED PRN Sodium Chloride 0.9% [Saline Flush] 10 ml FLUSH ASDIRECTED PRN Sodium Chloride 0.9% [Saline Flush] 2.5 ml FLUSH ASDIRECTED PRN Peripheral IV Insertion Adult [OM.PC] Urgent Sequential Compression Device [OM.PC] Per Unit Routine 09/10/20 23:57 Antiembolic Devices [RC] PER UNIT ROUTINE 09/11/20 01:54 Antiembolic Devices [RC] PER UNIT ROUTINE Notify Provider Intake and Out [RC] ASDIRECTED Notify Provider Vital Signs [RC] ASDIRECTED Oxygen Therapy [RC] ASDIRECTED RT Incentive Spirometry [RC] Q2HWA Up With Assistance [RC] PER UNIT ROUTINE Up ad Diana [RC] PER UNIT ROUTINE Vital Signs [RC] PER UNIT ROUTINE Acetaminophen/oxyCODONE [Percocet 325-5 MG] 1 tab PO Q4H PRN Acetaminophen/oxyCODONE [Percocet 325-5 MG] 2 tab PO Q4H PRN Morphine 4 mg IVPUSH Q2H PRN Ondansetron [Zofran] 4 mg IVPUSH Q6H PRN Promethazine [Phenergan] 25 mg IM Q6H PRN Peripheral IV Discontinue [OM.PC] Routine Sequential Compression Device [OM.PC] Per Unit Routine Resuscitation Status Routine 09/11/20 Breakfast Regular Diet [DIET] 09/11/20 07:00 Ketorolac [Toradol] 30 mg IVPUSH Q6H PRN 09/11/20 09:36 Sodium Chloride 0.9% [Normal Saline] 1,000 ml IV .Bolus 09/11/20 10:12 Discharge Patient [ADT] Routine - Assessment Assessment:: 45yo POD0 s/p suction D&C for incomplete with hemorrhage. Stable and recovering well. - Plan Plan:: - BP has been borderline over night 90s-100s/50s, HR 70s-80s. Will give IVF bolus - ambulating and tolerating PO - Hgb 12.5 preop, 9.6 this AM, denies s/s of anemia. Will start iron supplements Will repeat vitals after fluid bolus, plan for discharge after. Reviewed postop care instructions. Plan to follow up with [facility] clinic in 2 weeks.
[2020-09-11 15:48] VITALS: BP 107/68; PULSE 66
--- NOTE | 2020-09-11 16:13 | OR ---
SURGEON: Kaleb Tubbs MD DATE OF PROCEDURE: 09/11/2020 INDICATION FOR PROCEDURE: A 45-year-old G15, P 13-1-0-13, presenting with incomplete and hemorrhage. The patient approximately 10 weeks by last menstrual period. She reports was seen at [facility] and was found to have missed , measuring about 6 weeks on ultrasound . She was scheduled to have a dilation and curettage this week. Around 7 p.m., she started to have heavy vaginal bleeding with clots that soaked multiple pads an hour. She presented to the ED and continued to have heavy bleeding. She also became hypotensive, 70s/30s. She felt dizzy and had a sensation of passing out. She was given an IV fluid bolus and a gram of TXA, which her vitals did improve and the bleeding did slow down. Pelvic ultrasound showed a gestational sac with a 5-week 6-day IUP with no heart rate, it was near the cervical os. Reviewed options with the patient that since she is more stable, we can proceed with expectant management or medical management with Cytotec with close monitoring or proceed with D and C to stop the bleeding. The patient desired to proceed with the D and C. She tested positive for COVID-19. She denies any symptoms currently. Reports her son was COVID-positive about 2 months ago and she had mild symptoms then. Discussed this with Anesthesia team and decision was made to proceed with spinal anesthesia to avoid respiratory complications of general anesthesia. PREOPERATIVE DIAGNOSIS: Incomplete with hemorrhage. POSTOPERATIVE DIAGNOSIS: Incomplete with hemorrhage. PROCEDURE PERFORMED: Suction dilation and curettage. ANESTHESIA: Spinal anesthesia. ANESTHESIOLOGIST: Dr. Elpidio Iglesias. FINDINGS: The cervix was 2 cm dilated with products of conception at the os. The uterus measured about 8-week size. ESTIMATED BLOOD LOSS: 200 mL. PROCEDURE IN DETAIL: Risks of the procedure were discussed with the patient including bleeding, infection, DVTs, and injury to surrounding organs including bladder, bowel, ureter. She was agreeable, questions were answered and consent was signed. The patient was taken to the operating room, where she was placed in dorsal lithotomy position. Properly prepped and draped in sterile manner under spinal anesthesia. A bimanual exam noted uterus to be about 8-week size and mobile. No adnexal masses were felt. The cervix was exposed with a vaginal speculum. There was about 10 mL of blood in the vaginal canal and blood clots and products of conception was noted at the cervical os which was 2 cm dilated. A ring forceps was used to remove all the products that were visible from the cervix and placed on a Telfa pad and sent to Pathology. The anterior lip of the cervix was grasped with an Allis clamp. A #7 suction curette was connected to suction under adequate pressure. It was placed in the cervix and advanced to the fundus. The suction curette was rotated slowly while extracting products of conception from the uterus. Two passes were made with the suction curette. There was a small amount of products still remaining. A sharp curettage was then performed carefully. Additional 2 passes were made with the suction curette. There was a moderate amount of bleeding. A dose of Methergine was given and bimanual massage performed. The uterus became firm and bleeding light. The patient tolerated the procedure well, was given postoperative care instructions. JEANETTE TAVERAS /[id number] MTDSunday
== END 2020-09-11 17:15 | disposition home or self-care (01) ==
LOC: MW.ED 20:59 → MW.SDS 23:33 → MW.OB 23:35 → MW.MS 09-11 01:43 → MW.SDS 09-11 17:15
PROVIDERS: ATTEND Obstetrics & Gynecology
DX: O03.1 Delayed or excessive hemorrhage following incomplete spontaneous abortion (principal); U07.1 COVID-19; Z3A.10 10 weeks gestation of pregnancy; F17.210 Nicotine dependence, cigarettes, uncomplicated; E03.9 Hypothyroidism, unspecified
CPT/HCPCS: 36415; 59812; 76817; 80053; 81001; 84702; 85025; 85027; 86850; 86900; 86901; 87635; 88305; 96365; 96375; 99285; J1885; J2001; J2210; J2250; J2400; J2405; J2704; J3490; J7030; J7060; 01965; 99284; J0330; J3010; U0002

== ENCOUNTER 2021-09-01 16:23 | Inpatient (IN) | payer BC ==
[2021-09-01] MEDS ORDERED: Sodium Chloride 0.9% 2.5 ML Syringe FLUSH PRN (16:43)
[2021-09-01] MEDS ORDERED: Tranexamic Acid 1,000 MG in Sodium Chloride 0.9% 100 ML IV PRN (16:43)
[2021-09-01] MEDS ORDERED: Misoprostol 200 MCG Tab PO PRN (16:43)
[2021-09-01] MEDS ORDERED: Sodium Chloride 0.9% 20 ML SDV IV PRN (16:43)
[2021-09-01] MEDS ORDERED: Nalbuphine 10 MG/1 ML Vial IVPUSH PRN (16:43)
[2021-09-01] MEDS ORDERED: Sodium Chloride 0.9% 10 ML Syringe FLUSH PRN (16:43)
[2021-09-01] MEDS ORDERED: Ondansetron 4 MG/2 ML SDV IVPUSH PRN (16:43)
[2021-09-01] MEDS ORDERED: Butorphanol 1 MG/ML SDV IVPUSH PRN (16:43)
[2021-09-01] MEDS ORDERED: Water For Irrigation,Sterile 1,000 ML Container IRR PRN (16:43)
[2021-09-01] MEDS ORDERED: Carboprost Tromethamine 250 MCG/1 ML Amp IM PRN (16:43)
[2021-09-01] MEDS ORDERED: Methylergonovine 0.2 MG/1 ML Amp IM PRN (16:43)
[2021-09-01] MEDS ORDERED: Lidocaine 1% 50 ML MDV INJECT PRN (16:43)
[2021-09-01] MEDS ORDERED: Oxytocin/0.9 % Sodium Chloride 30 UNIT/500 ML BAG IV SCH (16:45)
[2021-09-01] MEDS: Lactated Ringers 1,000 ML IV SCH ×2 (16:55→17:39)
[2021-09-01] MEDS ORDERED: Ropivacaine HCl/PF 200 ML ONE (17:37)
[2021-09-01] MEDS ORDERED: fentaNYL 100 MCG/2 ML SDV ONE (17:38)
[2021-09-01] MEDS ORDERED: ePHEDrine 50 MG/ML SDV IVPUSH PRN ×2 (17:55)
--- NOTE | 2021-09-01 17:58 | PCM.POSTAN ---
POST ANESTHESIA ASSESSMENT - MENTAL STATUS Mental Status: Alert, Oriented - RESPIRATORY Respiratory Status: Respiratory Rate WNL, Airway Patent, O2 Saturation Stable - CARDIOVASCULAR CV Status: Pulse Rate WNL, Blood Pressure Stable - GASTROINTESTINAL GI Status: No Symptoms - POST OP HYDRATION Hydration Status: Adequate & Stable
--- NOTE | 2021-09-01 17:58 | PCM.PREANE ---
Preanesthetic Assessment - Anesthesia/Transfusion/Family Hx Anesthesia History: Prior Anesthesia Without Reaction Transfusion History: No Prior Transfusion(s) - Review of Systems General: No Symptoms Pulmonary: No Symptoms Cardiovascular: No Symptoms Gastrointestinal: No Symptoms Neurological: No Symptoms Other: Reports: None - Physical Assessment NPO Status Date: 09/01/21 NPO Status Time: 15:00 ASA Class: 2 Mental Status: Alert & Oriented x3 Airway Class: Mallampati = 1 Dentition: Reports: Normal Dentition Thyro-Mental Finger Breadths: 3 Mouth Opening Finger Breadths: 3 ROM/Head Extension: Full Lungs: Clear to Auscultation, Normal Respiratory Effort Cardiovascular: Regular Rate, Regular Rhythm - Lab Values: Laboratory Last Values WBC 9.31 K/uL (4.0-11.0) 09/01/21 16:53 RBC 4.41 M/uL (4.30-5.90) 09/01/21 16:53 Hgb 11.8 g/dL (12.0-16.0) L 09/01/21 16:53 Hct 35.6 % (36.0-46.0) L 09/01/21 16:53 MCV 80.7 fL (80.0-98.0) 09/01/21 16:53 MCH 26.8 pg (27.0-32.0) L 09/01/21 16:53 MCHC 33.1 g/dL (31.0-37.0) 09/01/21 16:53 RDW Std Deviation 44.7 fl (28.0-62.0) 09/01/21 16:53 RDW Coeff of Yi 15 % (11.0-15.0) 09/01/21 16:53 Plt Count 320 K/uL (150-400) 09/01/21 16:53 MPV 9.70 fL (7.40-12.00) 09/01/21 16:53 Nucleated RBC % 0.0 /100WBC 09/01/21 16:53 Nucleated RBCs # 0 K/uL 09/01/21 16:53 Membrane Rupture POSITIVE 09/01/21 16:40 SARS-CoV-2 RNA (CELIA) NEGATIVE (NEGATIVE) 09/01/21 16:57 - Allergies Allergies/Adverse Reactions: Allergies Allergy/AdvReac Type Severity Reaction Status Date / Time No Known Allergies Allergy Verified 08/07/21 14:32 - Blood Product(s) Available: PRBC - Acknowledgements Anesthesia Type Planned: Epidural Pt an Appropriate Candidate for the Planned Anesthesia: Yes Alternatives and Risks of Anesthesia Discussed w Pt/Guardian: Yes Pt/Guardian Understands and Agrees with Anesthesia Plan: Yes PreAnesthesia Questionnaire - Past Health History Medical/Surgical History: Denies Medical/Surgical History [employer] History: Reports: , Other (See Below) Other OB/BYN History: stillborn at 32 weeks, cord around neck. section - Infectious Disease History Infectious Disease History: Reports: Chicken Pox - HOME MEDS Home Medications: Home Meds Ferrous Sulfate 325 mg PO BID #60 tablet 09/11/20 [Rx] - CURRENT (IN HOUSE) MEDS Current Meds: Current Medications Butorphanol Tartrate (Butorphanol 1 Mg/Ml Sdv) 1 mg IVPUSH Q1H PRN PRN Reason: Pain (severe 7-10) Carboprost Tromethamine (Carboprost Tromethamine 250 Mcg/1 Ml Amp) 250 mcg IM ASDIRECTED PRN PRN Reason: Post Hemorrhage Ephedrine Sulfate (Ephedrine 50 Mg/Ml Sdv) 10 mg IVPUSH Q5M PRN PRN Reason: Hypotension Ephedrine Sulfate (Ephedrine 50 Mg/Ml Sdv) 10 mg IVPUSH Q1M PRN PRN Reason: Hypotension Lactated Ringer's (Ringers, Lactated) 1,000 mls @ 150 mls/hr IV ASDIRECTED [facility] Last Admin: 09/01/21 17:39 Dose: 150 mls/hr Documented by: Oxytocin/Sodium Chloride (Oxytocin 30 Unit In Ns 0.9% 500 Ml Premix) 30 unit in 500 mls @ 500 mls/hr IV TITRATE [facility] Last Admin: 09/01/21 17:39 Dose: 500 mls/hr Documented by: Tranexamic Acid 1,000 mg/ (Sodium Chloride) 110 mls @ 660 mls/hr IV ONETIME PRN PRN Reason: Bleeding Lidocaine HCl (Lidocaine 1% 50 Ml Mdv) 50 ml INJECT ONETIME PRN PRN Reason: Laceration repair Methylergonovine Maleate (Methylergonovine 0.2 Mg/1 Ml Amp) 0.2 mg IM ASDIRECTED PRN PRN Reason: Post Hemorrhage Miscellaneous Medication (Phenylephrine Hcl In 0.9% Nacl 1 Mg/10 Ml Syringe) 0.1 mg IVPUSH Q1M PRN PRN Reason: Hypotension Misoprostol (Misoprostol 200 Mcg Tab) 200 mcg PO ONETIME PRN PRN Reason: Post Hemorrhage Nalbuphine HCl (Nalbuphine 10 Mg/1 Ml Vial) 10 mg IVPUSH Q1H PRN PRN Reason: Pain (severe 7-10) Ondansetron HCl (Ondansetron 4 Mg/2 Ml Sdv) 4 mg IVPUSH Q6H PRN PRN Reason: Nausea/Vomiting Ropivacaine (Ropivacaine/Pf 400 Mg/200 Ml Belt Knife Feeder) 400 mg EPIDUR ASDIRECTED CYRUS Sodium Chloride (Sodium Chloride 0.9% 10 Ml Syringe) 10 ml FLUSH ASDIRECTED PRN PRN Reason: Keep Vein Open Sodium Chloride (Sodium Chloride 0.9% 2.5 Ml Syringe) 2.5 ml FLUSH ASDIRECTED PRN PRN Reason: Keep Vein Open Sodium Chloride (Sodium Chloride 0.9% 20 Ml Sdv) 10 ml IV ASDIRECTED PRN PRN Reason: IV Use Sterile Water (Water For Irrigation,Sterile 1,000 Ml Container) 1,000 ml IRR ASDIRECTED PRN PRN Reason: delivery Discontinued Medications Fentanyl (Fentanyl 100 Mcg/2 Ml Sdv) Confirm Administered Dose 100 mcg .ROUTE .STK-MED ONE Stop: 09/01/21 17:39 Ropivacaine (Naropin 0.2%) Confirm Administered Dose 200 mls @ as directed .ROUTE .STK-MED ONE Stop: 09/01/21 17:38
[2021-09-01] MEDS ORDERED: Ropivacaine/PF 400 MG/200 ML PCA EPIDUR SCH (18:00)
--- NOTE | 2021-09-01 18:01 | PCM.SN.2 ---
- Pre-Procedure Checklist Attending Provider Aware: Yes Chart Reviewed: Yes Consent Signed: Yes Labs Reviewed: Yes VS/FHR Reviewed: Yes Patient Identification Confirmation Method: Reports: Chart Visual, Verbal Patient Pt an Appropriate Candidate for the Planned Anesthesia: Yes Alternatives and Risks of Anesthesia Discussed w Pt/Guardian: Yes - Procedure Procedure Start Date: 09/01/21 Procedure Start Time: 17:[address]: Reports: Blood Pressure, Heart Rate, SPO2 Functional IV: Yes Safety Measures: Reports: Patient Identified, Procedure Verified, Site Verified, Procedure Time Out Patient Position: Reports: Sitting Prep: Reports: Alcohol x3, Betadine x3 Local Anesthetic: Reports: Intradermal Wheal w Lidocaine 1% Regional Placement Level: Reports: L3-4 Needle: Reports: 17 g Touhy Approach: Reports: Midline Technique: Reports: MARKY Glass Syringe Parasthesia: Reports: None Fluid Obtained: Reports: None Test Dose Medication: Reports: Lidocaine 1.5% w Epinephrine 1:200,000 Test Dose Response: Reports: Negative Loading Dose Time: 17:40 Loading Dose Medication: fentanyl 100mcg Loading Dose Patient Position: GURPREET Continuous Infusion Start Time: 17:45 Continuous Infusion Medication: 0.2% Naropin Continuous Infusion Rate: 16 Continuous Infusion PCS Bolus Option: 4 Continuous Infusion Lockout Dose (cc/hr): 28 Patient Position Post Placement: Reports: Supline/GURPREET Post-procedure Pain Level: 3 VS and FHR Monitored in Unit Post Placement: Yes Procedure End Date: 09/01/21 Procedure End Time: 19:00
[2021-09-01] MEDS ORDERED: Docusate Sodium 100 MG Cap PO PRN (18:26)
[2021-09-01] MEDS ORDERED: Witch Hazel Medicated Pads 40/Jar TOP PRN (18:26)
[2021-09-01] MEDS ORDERED: Ibuprofen 400 MG Tab PO PRN (18:26)
[2021-09-01] MEDS ORDERED: Lanolin 100% Cream 7 GM Tube TOP PRN (18:26)
[2021-09-01] MEDS ORDERED: Benzocaine/Menthol 20%-0.5% Spray 78 GM Cannister TOP PRN (18:26)
[2021-09-01] MEDS ORDERED: Bisacodyl 10 MG Supp RECTAL PRN (18:26)
[2021-09-01] MEDS ORDERED: Acetaminophen 500 MG Tab PO PRN ×2 (18:26)
--- NOTE | 2021-09-01 18:41 | PCM.LDHP ---
L&D History of Present Illness - General Date of Service: 09/01/21 Admit Problem/Dx: Patient Status Order with Admit Dx/Problem 09/01/21 16:32 Patient Status [ADT] Routine 09/01/21 16:43 Patient Status [ADT] Routine 09/01/21 18:28 Patient Status [ADT] Routine Admission Diagnosis/Problem Admission Diagnosis/Problem Source of Information: Patient History Limitations: Reports: No Limitations - History of Present Illness Introduction:: 46yo [id number] at 40w1d GA here with SROM. c/b h/o CSx1 and 2 successful after. Patient desires a TOLAC today, chance of success 92%. care uncomplicated: O+, abs screen neg, GBS neg. 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 section - Infectious Disease History Infectious Disease History: Reports: Chicken Pox Social & Family History - Family History Family Medical History: No Pertinent Family History Cardiac: Reports: Stent Endocrine/Metabolic: Reports: Hypothyroidism - Caffeine Use Caffeine Use: Reports: None H&P Review of Systems - Review of Systems: Review Of Systems: See Below General: Reports: No Symptoms HEENT: Reports: No Symptoms Pulmonary: Reports: No Symptoms Cardiovascular: Reports: No Symptoms Gastrointestinal: Reports: No Symptoms Genitourinary: Reports: No Symptoms Musculoskeletal: Reports: No Symptoms Skin: Reports: No Symptoms Psychiatric: Reports: No Symptoms Neurological: Reports: No Symptoms Hematologic/Lymphatic: Reports: No Symptoms Immunologic: Reports: No Symptoms L&D Exam - Exam Exam: See Below - OB Specific Contraction Intensity: Mild to Moderate Movement: Active Heart Tones: Present Heart Rate (FHR) Variability: Moderate (6-25 bpm) Presentation: Vertex Estimated Weight: 8 - Carranza Score Carranza Score Cervix Position: Midposition Carranza Score Consistency: Soft Carranza Score Effacement: 51-70% Carranza Score Dilation: 3-4 cm Carranza Score 's Station: -2 Carranza Score Total: 8 - Exam General: Alert, Oriented Lungs: Normal Respiratory Effort Cardiovascular: Regular Rate GI/Abdominal Exam: Soft Psychiatric: Alert, Normal Affect, Normal Mood - Patient Data Lab Results Last 24 hrs: Laboratory Results - last 24 hr 09/01/21 09/01/21 09/01/21 Range/Units 16:40 16:53 16:53 WBC 9.31 (4.0-11.0) K/uL RBC 4.41 (4.30-5.90) M/uL Hgb 11.8 L (12.0-16.0) g/dL Hct 35.6 L (36.0-46.0) % MCV 80.7 (80.0-98.0) fL MCH 26.8 L (27.0-32.0) pg MCHC 33.1 (31.0-37.0) g/dL RDW Std Deviation 44.7 (28.0-62.0) fl RDW Coeff of Yi 15 (11.0-15.0) % Plt Count 320 (150-400) K/uL MPV 9.70 (7.40-12.00) fL Nucleated RBC % 0.0 /100WBC Nucleated RBCs # 0 K/uL Membrane Rupture POSITIVE SARS-CoV-2 RNA (CELIA) (NEGATIVE) Blood Type O POSITIVE Antibody Screen NEGATIVE 09/01/21 Range/Units 16:57 WBC (4.0-11.0) K/uL RBC (4.30-5.90) M/uL Hgb (12.0-16.0) g/dL Hct (36.0-46.0) % MCV (80.0-98.0) fL MCH (27.0-32.0) pg MCHC (31.0-37.0) g/dL RDW Std Deviation (28.0-62.0) fl RDW Coeff of Yi (11.0-15.0) % Plt Count (150-400) K/uL MPV (7.40-12.00) fL Nucleated RBC % /100WBC Nucleated RBCs # K/uL Membrane Rupture SARS-CoV-2 RNA (CELIA) NEGATIVE (NEGATIVE) Blood Type Antibody Screen Result Diagrams: 09/01/21 16:53 - Problem List (1) SROM (spontaneous rupture of membranes) SNOMED Code(s): 547352440 ICD Code: CPS4239 - Status: Acute Priority: High Current Visit: Yes (2) Term SNOMED Code(s): 27284062 ICD Code: Z34.90 - ENCNTR FOR SUPRVSN OF NORMAL , UNSP, UNSP TRIMESTER Status: Acute Priority: High Current Visit: Yes (3) Vaginal after SNOMED Code(s): 626569441 ICD Code: O34.219 - MATERNAL CARE FOR UNSP TYPE SCAR FROM PREVIOUS DEL Status: Acute Priority: Low Current Visit: No Problem List Initiated/Reviewed/Updated: Yes Orders Last 24hrs: Active Orders 24 hr Category Date Time Status Patient Status [ADT] Routine ADT 09/01/21 18:28 Ordered Communication Order [RC] PRN Care 09/01/21 17:55 Active Heart Tones [RC] CONTINUOUS Care 09/01/21 16:43 Active Non Stress Test [RC] PER UNIT ROUTINE Care 09/01/21 16:32 Active May Shower [RC] ASDIRECTED Care 09/01/21 16:43 Active May Shower [RC] ASDIRECTED Care 09/01/21 18:28 Ordered Notify Provider [RC] PRN Care 09/01/21 16:43 Active Up ad Diana [RC] ASDIRECTED Care 09/01/21 16:32 Active Up ad Diana [RC] ASDIRECTED Care 09/01/21 18:28 Ordered Vaginal Exam [RC] Click to Edit Care 09/01/21 16:32 Active Vital Signs [RC] PER UNIT ROUTINE Care 09/01/21 16:32 Active Vital Signs [RC] PER UNIT ROUTINE Care 09/01/21 18:28 Ordered HEMOGLOBIN/HEMATOCRIT,HH [HEME] Timed Lab 09/02/21 05:11 Ordered RPR (SYPHILIS SERO) W/ RFLX [REF] Routine Lab 09/01/21 16:53 Received Acetaminophen [Tylenol Extra Strength] Med 09/01/21 18:26 Ordered 1,000 mg PO Q4H PRN Acetaminophen [Tylenol Extra Strength] Med 09/01/21 18:26 Ordered 500 mg PO Q4H PRN Benzocaine/Menthol [Dermoplast Pain Relief 20%-0.5% Med 09/01/21 18:26 Ordered [place]] 78 gm TOP ASDIRECTED PRN Butorphanol [Stadol] Med 09/01/21 16:43 Active 1 mg IVPUSH Q1H PRN Carboprost Tromethamine [Hemabate DS] Med 09/01/21 16:43 Active 250 mcg IM ASDIRECTED PRN Docusate Sodium [Colace] Med 09/01/21 18:26 Ordered 100 mg PO Q12H PRN Ibuprofen [Motrin] Med 09/01/21 18:26 Ordered 400 mg PO Q4H PRN Ibuprofen [Motrin] Med 09/01/21 18:26 Ordered 800 mg PO Q6H PRN Lactated Ringers [Ringers, Lactated] 1,000 ml Med 09/01/21 16:45 Active IV ASDIRECTED Lanolin [Lansinoh HPA] Med 09/01/21 18:26 Ordered See Dose Instructions TOP ASDIRECTED PRN Lidocaine 1% [Xylocaine 1%] Med 09/01/21 16:43 Active 50 ml INJECT ONETIME PRN Methylergonovine [Methergine] Med 09/01/21 16:43 Active 0.2 mg IM ASDIRECTED PRN Nalbuphine [Nubain] Med 09/01/21 16:43 Active 10 mg IVPUSH Q1H PRN Ondansetron [Zofran] Med 09/01/21 16:43 Active 4 mg IVPUSH Q6H PRN Oxytocin/0.9 % Sodium Chloride [Oxytocin 30 Unit in NS Med 09/01/21 16:45 Active 0.9% 500 ML Premix] 30 unit in 500 ml IV TITRATE Phenylephrine HCl In 0.9% NaCl [Phenylephrine 1 MG/10 Med 09/01/21 17:55 Active ML-NS] 0.1 mg IVPUSH Q1M PRN Ropivacaine HCl/PF [Ropivacaine 0.2% SENIOR JAVA SOFTWARE ENGINEER 400 MG in 200 Med 09/01/21 18:00 Active ML] 400 mg EPIDUR ASDIRECTED Sodium Chloride 0.9% [Normal Saline] Med 09/01/21 16:43 Active 10 ml IV ASDIRECTED PRN Sodium Chloride 0.9% [Saline Flush] Med 09/01/21 16:43 Active 10 ml FLUSH ASDIRECTED PRN Sodium Chloride 0.9% [Saline Flush] Med 09/01/21 16:43 Active 2.5 ml FLUSH ASDIRECTED PRN Tranexamic Acid [Cyklokapron] 1,000 mg Med 09/01/21 16:43 Active Sodium Chloride 0.9% [Normal Saline] 100 ml IV ONETIME Water For Irrigation,Sterile [Sterile Water for Med 09/01/21 16:43 Active Irrigation] 1,000 ml IRR ASDIRECTED PRN bisacodyL [Dulcolax] Med 09/01/21 18:26 Ordered 10 mg RECTAL ONETIME PRN ePHEDrine [ePHEDrine sulfate] Med 09/01/21 17:55 Active 10 mg IVPUSH Q1M PRN ePHEDrine [ePHEDrine sulfate] Med 09/01/21 17:55 Active 10 mg IVPUSH Q5M PRN miSOPROStoL [Cytotec] Med 09/01/21 16:43 Active 200 mcg PO ONETIME PRN witch Jose [Tucks] Med 09/01/21 18:26 Ordered 1 pad TOP ASDIRECTED PRN Assess Lochia [WOMSER] Per Unit Routine Oth 09/01/21 18:28 Ordered Assess Uterine Involution [WOMSER] Per Unit Routine Oth 09/01/21 18:28 Ordered Scalp Electrode [WOMSER] Per Unit Routine Oth 09/01/21 16:43 Ordered Peripheral IV Discontinue [OM.PC] Routine Oth 09/01/21 18:28 Ordered Peripheral IV Insertion Adult [OM.PC] Routine Oth 09/01/21 16:43 Ordered Resuscitation Status Routine Resus Stat 09/01/21 16:32 Ordered Medication Orders Butorphanol Tartrate (Butorphanol 1 Mg/Ml Sdv) 1 mg IVPUSH Q1H PRN PRN Reason: Pain (severe 7-10) Carboprost Tromethamine (Carboprost Tromethamine 250 Mcg/1 Ml Amp) 250 mcg IM ASDIRECTED PRN PRN Reason: Post Hemorrhage Ephedrine Sulfate (Ephedrine 50 Mg/Ml Sdv) 10 mg IVPUSH Q5M PRN PRN Reason: Hypotension Ephedrine Sulfate (Ephedrine 50 Mg/Ml Sdv) 10 mg IVPUSH Q1M PRN PRN Reason: Hypotension Lactated Ringer's (Ringers, Lactated) 1,000 mls @ 150 mls/hr IV ASDIRECTED [facility] Last Admin: 09/01/21 17:39 Dose: 150 mls/hr Documented by: Infusion: 09/01/21 17:39 Dose: 150 mls/hr Documented by: Admin: 09/01/21 16:55 Dose: 150 mls/hr Documented by: YESSICA Oxytocin/Sodium Chloride (Oxytocin 30 Unit In Ns 0.9% 500 Ml Premix) 30 unit in 500 mls @ 500 mls/hr IV TITRATE [facility] Last Admin: 09/01/21 17:39 Dose: 500 mls/hr Documented by: YESSICA Tranexamic Acid 1,000 mg/ (Sodium Chloride) 110 mls @ 660 mls/hr IV ONETIME PRN PRN Reason: Bleeding Lidocaine HCl (Lidocaine 1% 50 Ml Mdv) 50 ml INJECT ONETIME PRN PRN Reason: Laceration repair Methylergonovine Maleate (Methylergonovine 0.2 Mg/1 Ml Amp) 0.2 mg IM ASDIRECTED PRN PRN Reason: Post Hemorrhage Miscellaneous Medication (Phenylephrine Hcl In 0.9% Nacl 1 Mg/10 Ml Syringe) 0.1 mg IVPUSH Q1M PRN PRN Reason: Hypotension Misoprostol (Misoprostol 200 Mcg Tab) 200 mcg PO ONETIME PRN PRN Reason: Post Hemorrhage Nalbuphine HCl (Nalbuphine 10 Mg/1 Ml Vial) 10 mg IVPUSH Q1H PRN PRN Reason: Pain (severe 7-10) Ondansetron HCl (Ondansetron 4 Mg/2 Ml Sdv) 4 mg IVPUSH Q6H PRN PRN Reason: Nausea/Vomiting Ropivacaine (Ropivacaine/Pf 400 Mg/200 Ml Box Toe Flanger Stitchdowns) 400 mg EPIDUR ASDIRECTED [facility] Sodium Chloride (Sodium Chloride 0.9% 10 Ml Syringe) 10 ml FLUSH ASDIRECTED PRN PRN Reason: Keep Vein Open Sodium Chloride (Sodium Chloride 0.9% 2.5 Ml Syringe) 2.5 ml FLUSH ASDIRECTED PRN PRN Reason: Keep Vein Open Sodium Chloride (Sodium Chloride 0.9% 20 Ml Sdv) 10 ml IV ASDIRECTED PRN PRN Reason: IV Use Sterile Water (Water For Irrigation,Sterile 1,000 Ml Container) 1,000 ml IRR ASDIRECTED PRN PRN Reason: delivery Assessment/Plan Comment:: 46yo [id number] at 40w1d GA admitted in labor and SROM. c/b h/o CSx1 and 2 successful after. Patient desires a TOLAC today, chance of success 92%. Cat1 tracing. Carranza score of 8 per nurse assessment. P: Expectant management Epidural PRN
--- NOTE | 2021-09-01 18:50 | PCM.DEL ---
L & D Note - General Info Date of Service: 09/01/21 Mother's Due Date: 08/31/21 - Delivery Note Labor: Spontaneous Delivery Outcome: Livebirth Infant Delivery Method: Spontaneous Vaginal Delivery-Single Presentation: Vertex Nuchal Cord: Present Anesthesia Type: Epidural Amniotic Fluid Description: Clear Episiotomy Type: None Laceration: None Placenta: Intact, Spontaneous Cord: 3 Vessels Estimated Blood Loss: 300 Resuscitation Needed: No : Stimulated Score 1 min: 9 Score 5 min: 10 Delivery Comments (Free Text/Narrative):: of a live male, 8lb 6oz and Apgars 9/10. Delivered LAURA, presence of loose nuchal cord x1, No meconium. Vertex and body delivered without difficulty. Cord clamped and cut. Nose and mouth bulb suctioned; Baby placed on Mom's abdomen. Placenta delivered spontaneously, intact. Fundus firm, minimal bleeding. Placenta appears intact with 3 vessel cord. Perineum and vagina inspected, no laceration. EBL 300cc. Hemostatic Pt tolerated procedure well, recovering in LDR. Infant by her side. - General Info Date of Service: 09/01/21 Subjective Update: 46yo G17 now [id number] s/p successful at 40w1d GA. Mother and baby are doing well. Functional Status: Reports: Pain Controlled - Review of Systems General: Reports: No Symptoms HEENT: Reports: No Symptoms Pulmonary: Reports: No Symptoms Cardiovascular: Reports: No Symptoms Gastrointestinal: Reports: No Symptoms Genitourinary: Reports: No Symptoms Musculoskeletal: Reports: No Symptoms Skin: Reports: No Symptoms Neurological: Reports: No Symptoms Psychiatric: Reports: No Symptoms - Patient Data Lab Results Last 24 Hours: Laboratory Results - last 24 hr 09/01/21 09/01/21 09/01/21 Range/Units 16:40 16:53 16:53 WBC 9.31 (4.0-11.0) K/uL RBC 4.41 (4.30-5.90) M/uL Hgb 11.8 L (12.0-16.0) g/dL Hct 35.6 L (36.0-46.0) % MCV 80.7 (80.0-98.0) fL MCH 26.8 L (27.0-32.0) pg MCHC 33.1 (31.0-37.0) g/dL RDW Std Deviation 44.7 (28.0-62.0) fl RDW Coeff of Yi 15 (11.0-15.0) % Plt Count 320 (150-400) K/uL MPV 9.70 (7.40-12.00) fL Nucleated RBC % 0.0 /100WBC Nucleated RBCs # 0 K/uL Membrane Rupture POSITIVE SARS-CoV-2 RNA (CELIA) (NEGATIVE) Blood Type O POSITIVE Antibody Screen NEGATIVE 09/01/21 Range/Units 16:57 WBC (4.0-11.0) K/uL RBC (4.30-5.90) M/uL Hgb (12.0-16.0) g/dL Hct (36.0-46.0) % MCV (80.0-98.0) fL MCH (27.0-32.0) pg MCHC (31.0-37.0) g/dL RDW Std Deviation (28.0-62.0) fl RDW Coeff of Yi (11.0-15.0) % Plt Count (150-400) K/uL MPV (7.40-12.00) fL Nucleated RBC % /100WBC Nucleated RBCs # K/uL Membrane Rupture SARS-CoV-2 RNA (CELIA) NEGATIVE (NEGATIVE) Blood Type Antibody Screen Med Orders - Current: Current Medications Acetaminophen (Acetaminophen 500 Mg Tab) 500 mg PO Q4H PRN PRN Reason: Pain (mild 1-3) Acetaminophen (Acetaminophen 500 Mg Tab) 1,000 mg PO Q4H PRN PRN Reason: Pain (mild 1-3) Benzocaine/Menthol (Benzocaine/Menthol 20%-0.5% [place] 78 Gm Cannister) 78 gm TOP ASDIRECTED PRN PRN Reason: Perineal Comfort Measure Bisacodyl (Bisacodyl 10 Mg Supp) 10 mg RECTAL ONETIME PRN PRN Reason: Constipation Butorphanol Tartrate (Butorphanol 1 Mg/Ml Sdv) 1 mg IVPUSH Q1H PRN PRN Reason: Pain (severe 7-10) Carboprost Tromethamine (Carboprost Tromethamine 250 Mcg/1 Ml Amp) 250 mcg IM ASDIRECTED PRN PRN Reason: Post Hemorrhage Docusate Sodium (Docusate Sodium 100 Mg Cap) 100 mg PO Q12H PRN PRN Reason: Constipation Emollient Ointment (Lanolin 100% Cream 7 Gm Tube) 0 gm TOP ASDIRECTED PRN PRN Reason: Sore Nipples Ephedrine Sulfate (Ephedrine 50 Mg/Ml Sdv) 10 mg IVPUSH Q5M PRN PRN Reason: Hypotension Ephedrine Sulfate (Ephedrine 50 Mg/Ml Sdv) 10 mg IVPUSH Q1M PRN PRN Reason: Hypotension Lactated Ringer's (Ringers, Lactated) 1,000 mls @ 150 mls/hr IV ASDIRECTED [facility] Last Admin: 09/01/21 17:39 Dose: 150 mls/hr Documented by: Oxytocin/Sodium Chloride (Oxytocin 30 Unit In Ns 0.9% 500 Ml Premix) 30 unit in 500 mls @ 500 mls/hr IV TITRATE [facility] Last Admin: 09/01/21 17:39 Dose: 500 mls/hr Documented by: Tranexamic Acid 1,000 mg/ (Sodium Chloride) 110 mls @ 660 mls/hr IV ONETIME PRN PRN Reason: Bleeding Ibuprofen (Ibuprofen 400 Mg Tab) 400 mg PO Q4H PRN PRN Reason: Pain (mild 1-3) Ibuprofen (Ibuprofen 800 Mg Tab) 800 mg PO Q6H PRN PRN Reason: Cramping Lidocaine HCl (Lidocaine 1% 50 Ml Mdv) 50 ml INJECT ONETIME PRN PRN Reason: Laceration repair Methylergonovine Maleate (Methylergonovine 0.2 Mg/1 Ml Amp) 0.2 mg IM ASDIRECTED PRN PRN Reason: Post Hemorrhage Miscellaneous Medication (Phenylephrine Hcl In 0.9% Nacl 1 Mg/10 Ml Syringe) 0.1 mg IVPUSH Q1M PRN PRN Reason: Hypotension Misoprostol (Misoprostol 200 Mcg Tab) 200 mcg PO ONETIME PRN PRN Reason: Post Hemorrhage Nalbuphine HCl (Nalbuphine 10 Mg/1 Ml Vial) 10 mg IVPUSH Q1H PRN PRN Reason: Pain (severe 7-10) Ondansetron HCl (Ondansetron 4 Mg/2 Ml Sdv) 4 mg IVPUSH Q6H PRN PRN Reason: Nausea/Vomiting Ropivacaine (Ropivacaine/Pf 400 Mg/200 Ml Nurse Practitioner Physicians Assistant) 400 mg EPIDUR ASDIRECTED [facility] Sodium Chloride (Sodium Chloride 0.9% 10 Ml Syringe) 10 ml FLUSH ASDIRECTED PRN PRN Reason: Keep Vein Open Sodium Chloride (Sodium Chloride 0.9% 2.5 Ml Syringe) 2.5 ml FLUSH ASDIRECTED PRN PRN Reason: Keep Vein Open Sodium Chloride (Sodium Chloride 0.9% 20 Ml Sdv) 10 ml IV ASDIRECTED PRN PRN Reason: IV Use Sterile Water (Water For Irrigation,Sterile 1,000 Ml Container) 1,000 ml IRR ASDIRECTED PRN PRN Reason: delivery Witch Megan (Witch Megan Medicated Pads 40/Jar) 1 pad TOP ASDIRECTED PRN PRN Reason: comfort care Discontinued Medications Fentanyl (Fentanyl 100 Mcg/2 Ml Sdv) Confirm Administered Dose 100 mcg .ROUTE .STK-MED ONE Stop: 09/01/21 17:39 Ropivacaine (Naropin 0.2%) Confirm Administered Dose 200 mls @ as directed .ROUTE .STK-MED ONE Stop: 09/01/21 17:38 - Exam General: Alert, Oriented Lungs: Normal Respiratory Effort Cardiovascular: Regular Rate GI/Abdominal Exam: Soft, Non-Tender Extremities: Normal Inspection Psy/Mental Status: Alert, Normal Affect, Normal Mood - Problem List & Annotations (1) SROM (spontaneous rupture of membranes) SNOMED Code(s): 292837771 Code(s): QOC1035 - Status: Acute Priority: High Current Visit: Yes (2) Term SNOMED Code(s): 49184448 Code(s): Z34.90 - ENCNTR FOR SUPRVSN OF NORMAL , UNSP, UNSP TRIMESTER Status: Acute Priority: High Current Visit: Yes (3) Vaginal after SNOMED Code(s): 575590454 Code(s): O34.219 - MATERNAL CARE FOR UNSP TYPE SCAR FROM PREVIOUS DEL Status: Acute Priority: Low Current Visit: No - Problem List Review Problem List Initiated/Reviewed/Updated: Yes - My Orders Last 24 Hours: My Active Orders 09/01/21 16:32 Non Stress Test [RC] PER UNIT ROUTINE Up ad Diana [RC] ASDIRECTED Vaginal Exam [RC] Click to Edit Vital Signs [RC] PER UNIT ROUTINE Resuscitation Status Routine 09/01/21 16:43 Heart Tones [RC] CONTINUOUS May Shower [RC] ASDIRECTED Notify Provider [RC] PRN Butorphanol [Stadol] 1 mg IVPUSH Q1H PRN Carboprost Tromethamine [Hemabate DS] 250 mcg IM ASDIRECTED PRN Lidocaine 1% [Xylocaine 1%] 50 ml INJECT ONETIME PRN Methylergonovine [Methergine] 0.2 mg IM ASDIRECTED PRN Nalbuphine [Nubain] 10 mg IVPUSH Q1H PRN Ondansetron [Zofran] 4 mg IVPUSH Q6H PRN Sodium Chloride 0.9% [Normal Saline] 10 ml IV ASDIRECTED PRN Sodium Chloride 0.9% [Saline Flush] 10 ml FLUSH ASDIRECTED PRN Sodium Chloride 0.9% [Saline Flush] 2.5 ml FLUSH ASDIRECTED PRN Tranexamic Acid [Cyklokapron] 1,000 mg Sodium Chloride 0.9% [Normal Saline] 100 ml IV ONETIME Water For Irrigation,Sterile [Sterile Water for Irrigation] 1,000 ml IRR ASDIRECTED PRN miSOPROStoL [Cytotec] 200 mcg PO ONETIME PRN Scalp Electrode [WOMSER] Per Unit Routine Peripheral IV Insertion Adult [OM.PC] Routine 09/01/21 16:45 Lactated Ringers [Ringers, Lactated] 1,000 ml IV ASDIRECTED Oxytocin/0.9 % Sodium Chloride [Oxytocin 30 Unit in NS 0.9% 500 ML Premix] 30 unit in 500 ml IV TITRATE 09/01/21 16:53 RPR (SYPHILIS SERO) W/ RFLX [REF] Routine 09/01/21 18:26 Acetaminophen [Tylenol Extra Strength] 1,000 mg PO Q4H PRN Acetaminophen [Tylenol Extra Strength] 500 mg PO Q4H PRN Benzocaine/Menthol [Dermoplast Pain Relief 20%-0.5% [place]] 78 gm TOP ASDIRECTED PRN Docusate Sodium [Colace] 100 mg PO Q12H PRN Ibuprofen [Motrin] 400 mg PO Q4H PRN Ibuprofen [Motrin] 800 mg PO Q6H PRN Lanolin [Lansinoh HPA] See Dose Instructions TOP ASDIRECTED PRN bisacodyL [Dulcolax] 10 mg RECTAL ONETIME PRN witch Megan [Tucks] 1 pad TOP ASDIRECTED PRN 09/01/21 18:28 Patient Status [ADT] Routine May Shower [RC] ASDIRECTED Up ad Diana [RC] ASDIRECTED Vital Signs [RC] PER UNIT ROUTINE Assess Lochia [WOMSER] Per Unit Routine Assess Uterine Involution [WOMSER] Per Unit Routine Peripheral IV Discontinue [OM.PC] Routine 09/02/21 05:11 HEMOGLOBIN/HEMATOCRIT,HH [HEME] Timed - Plan Plan:: 46yo G17 now [id number] s/p successful at 40w1d. Mom and baby are doing well. P: routine care
[2021-09-01] MEDS: Ibuprofen 800 MG Tab PO PRN (20:07)
[2021-09-02] MEDS: Ibuprofen 800 MG Tab PO PRN ×2 (07:57→16:03)
--- NOTE | 2021-09-02 17:33 | PCM.PNPP ---
- General Info Date of Service: 09/02/21 Admission Dx/Problem (Free Text): Patient Status Order with Admit Dx/Problem 09/01/21 16:32 Patient Status [ADT] Routine 09/01/21 16:43 Patient Status [ADT] Routine 09/01/21 18:28 Patient Status [ADT] Routine Admission Diagnosis/Problem Admission Diagnosis/Problem Subjective Update: 46yo G17 now [id number] s/p successful at 40w1d GA. Mother is doing well. Reports mild vaginal bleeding, no clots. Voiding without any issues. No c/o Functional Status: Reports: Pain Controlled - Review of Systems General: Reports: No Symptoms HEENT: Reports: No Symptoms Pulmonary: Reports: No Symptoms Cardiovascular: Reports: No Symptoms Gastrointestinal: Reports: No Symptoms Genitourinary: Reports: No Symptoms Musculoskeletal: Reports: No Symptoms Skin: Reports: No Symptoms Neurological: Reports: No Symptoms Psychiatric: Reports: No Symptoms - General Info Date of Service: 09/02/21 - Patient Data Vital Signs - Most Recent: Last Vital Signs Temp 98.0 F 09/02/21 16:00 Pulse 84 09/02/21 16:00 Resp 18 09/02/21 16:00 BP 143/81 H 09/02/21 16:00 Pulse Ox 96 09/02/21 16:00 Weight - Most Recent: 83.461 kg Lab Results - Last 24 Hours: Laboratory Results - last 24 hr 09/01/21 09/01/21 09/02/21 Range/Units 16:53 16:57 05:59 Hgb 10.9 L (12.0-16.0) g/dL Hct 33.3 L (36.0-46.0) % SARS-CoV-2 RNA (CELIA) NEGATIVE (NEGATIVE) Blood Type O POSITIVE Antibody Screen NEGATIVE Med Orders - Current: Current Medications Acetaminophen (Acetaminophen 500 Mg Tab) 500 mg PO Q4H PRN PRN Reason: Pain (mild 1-3) Acetaminophen (Acetaminophen 500 Mg Tab) 1,000 mg PO Q4H PRN PRN Reason: Pain (mild 1-3) Benzocaine/Menthol (Benzocaine/Menthol 20%-0.5% [place] 78 Gm Cannister) 78 gm TOP ASDIRECTED PRN PRN Reason: Perineal Comfort Measure Last Admin: 09/01/21 20:09 Dose: 1 canister Documented by: Bisacodyl (Bisacodyl 10 Mg Supp) 10 mg RECTAL ONETIME PRN PRN Reason: Constipation Butorphanol Tartrate (Butorphanol 1 Mg/Ml Sdv) 1 mg IVPUSH Q1H PRN PRN Reason: Pain (severe 7-10) Carboprost Tromethamine (Carboprost Tromethamine 250 Mcg/1 Ml Amp) 250 mcg IM ASDIRECTED PRN PRN Reason: Post Hemorrhage Docusate Sodium (Docusate Sodium 100 Mg Cap) 100 mg PO Q12H PRN PRN Reason: Constipation Last Admin: 09/02/21 07:57 Dose: 100 mg Documented by: Emollient Ointment (Lanolin 100% Cream 7 Gm Tube) 0 gm TOP ASDIRECTED PRN PRN Reason: Sore Nipples Last Admin: 09/01/21 20:09 Dose: 7 gram Documented by: Ephedrine Sulfate (Ephedrine 50 Mg/Ml Sdv) 10 mg IVPUSH Q5M PRN PRN Reason: Hypotension Ephedrine Sulfate (Ephedrine 50 Mg/Ml Sdv) 10 mg IVPUSH Q1M PRN PRN Reason: Hypotension Lactated Ringer's (Ringers, Lactated) 1,000 mls @ 150 mls/hr IV ASDIRECTED [facility] Last Admin: 09/01/21 17:39 Dose: 150 mls/hr Documented by: Oxytocin/Sodium Chloride (Oxytocin 30 Unit In Ns 0.9% 500 Ml Premix) 30 unit in 500 mls @ 500 mls/hr IV TITRATE [facility] Last Admin: 09/01/21 17:39 Dose: 500 mls/hr Documented by: Tranexamic Acid 1,000 mg/ (Sodium Chloride) 110 mls @ 660 mls/hr IV ONETIME PRN PRN Reason: Bleeding Ibuprofen (Ibuprofen 400 Mg Tab) 400 mg PO Q4H PRN PRN Reason: Pain (mild 1-3) Ibuprofen (Ibuprofen 800 Mg Tab) 800 mg PO Q6H PRN PRN Reason: Cramping Last Admin: 09/02/21 16:03 Dose: 800 mg Documented by: Lidocaine HCl (Lidocaine 1% 50 Ml Mdv) 50 ml INJECT ONETIME PRN PRN Reason: Laceration repair Methylergonovine Maleate (Methylergonovine 0.2 Mg/1 Ml Amp) 0.2 mg IM ASDIRECTED PRN PRN Reason: Post Hemorrhage Miscellaneous Medication (Phenylephrine Hcl In 0.9% Nacl 1 Mg/10 Ml Syringe) 0.1 mg IVPUSH Q1M PRN PRN Reason: Hypotension Misoprostol (Misoprostol 200 Mcg Tab) 200 mcg PO ONETIME PRN PRN Reason: Post Hemorrhage Nalbuphine HCl (Nalbuphine 10 Mg/1 Ml Vial) 10 mg IVPUSH Q1H PRN PRN Reason: Pain (severe 7-10) Ondansetron HCl (Ondansetron 4 Mg/2 Ml Sdv) 4 mg IVPUSH Q6H PRN PRN Reason: Nausea/Vomiting Ropivacaine (Ropivacaine/Pf 400 Mg/200 Ml [employer] Super[employer]) 400 mg EPIDUR ASDIRECTED [facility] Sodium Chloride (Sodium Chloride 0.9% 10 Ml Syringe) 10 ml FLUSH ASDIRECTED PRN PRN Reason: Keep Vein Open Sodium Chloride (Sodium Chloride 0.9% 2.5 Ml Syringe) 2.5 ml FLUSH ASDIRECTED PRN PRN Reason: Keep Vein Open Sodium Chloride (Sodium Chloride 0.9% 20 Ml Sdv) 10 ml IV ASDIRECTED PRN PRN Reason: IV Use Sterile Water (Water For Irrigation,Sterile 1,000 Ml Container) 1,000 ml IRR ASDIRECTED PRN PRN Reason: delivery Witch Megan (Witch Megan Medicated Pads 40/Jar) 1 pad TOP ASDIRECTED PRN PRN Reason: comfort care Last Admin: 09/01/21 20:10 Dose: 1 tub Documented by: Discontinued Medications Fentanyl (Fentanyl 100 Mcg/2 Ml Sdv) Confirm Administered Dose 100 mcg .ROUTE .STK-MED ONE Stop: 09/01/21 17:39 Last Admin: 09/01/21 21:48 Dose: Not Given Documented by: Ropivacaine (Naropin 0.2%) Confirm Administered Dose 200 mls @ as directed .ROUTE .STK-MED ONE Stop: 09/01/21 17:38 Last Admin: 09/01/21 21:48 Dose: Not Given Documented by: - Interaction Support Person: - Recovery Exam Fundal Tone: Firm Fundal Level: 1 Fingerbreadths Below Umbilicus Fundal Placement: Midline Lochia Amount: Small Lochia Color: Rubra/Red Perineum Description: Intact, Minimal Bruising/Swelling Episiotomy/Laceration: None Bladder Status: Voiding Urinary Elimination: Voided - Exam General: Alert, Oriented Lungs: Normal Respiratory Effort Cardiovascular: Regular Rate GI/Abdominal Exam: Soft, Non-Tender Extremities: Normal Inspection Psy/Mental Status: Alert, Normal Affect, Normal Mood - Problem List & Annotations (1) SROM (spontaneous rupture of membranes) SNOMED Code(s): 283723811 Code(s): WYF2124 - Status: Acute Priority: High Current Visit: Yes (2) Term SNOMED Code(s): 86004810 Code(s): Z34.90 - ENCNTR FOR SUPRVSN OF NORMAL , UNSP, UNSP TRIMESTER Status: Acute Priority: High Current Visit: Yes (3) Vaginal after SNOMED Code(s): 597152327 Code(s): O34.219 - MATERNAL CARE FOR UNSP TYPE SCAR FROM PREVIOUS DEL Status: Acute Priority: Low Current Visit: No - Problem List Review Problem List Initiated/Reviewed/Updated: Yes - My Orders Last 24 Hours: My Active Orders 09/01/21 16:32 Vital Signs [RC] PER UNIT ROUTINE Resuscitation Status Routine 09/01/21 16:43 May Shower [RC] ASDIRECTED Butorphanol [Stadol] 1 mg IVPUSH Q1H PRN Carboprost Tromethamine [Hemabate DS] 250 mcg IM ASDIRECTED PRN Lidocaine 1% [Xylocaine 1%] 50 ml INJECT ONETIME PRN Methylergonovine [Methergine] 0.2 mg IM ASDIRECTED PRN Nalbuphine [Nubain] 10 mg IVPUSH Q1H PRN Ondansetron [Zofran] 4 mg IVPUSH Q6H PRN Sodium Chloride 0.9% [Normal Saline] 10 ml IV ASDIRECTED PRN Sodium Chloride 0.9% [Saline Flush] 10 ml FLUSH ASDIRECTED PRN Sodium Chloride 0.9% [Saline Flush] 2.5 ml FLUSH ASDIRECTED PRN Tranexamic Acid [Cyklokapron] 1,000 mg Sodium Chloride 0.9% [Normal Saline] 100 ml IV ONETIME Water For Irrigation,Sterile [Sterile Water for Irrigation] 1,000 ml IRR ASDIRECTED PRN miSOPROStoL [Cytotec] 200 mcg PO ONETIME PRN Scalp Electrode [WOMSER] Per Unit Routine Peripheral IV Insertion Adult [OM.PC] Routine 09/01/21 16:45 Lactated Ringers [Ringers, Lactated] 1,000 ml IV ASDIRECTED Oxytocin/0.9 % Sodium Chloride [Oxytocin 30 Unit in NS 0.9% 500 ML Premix] 30 unit in 500 ml IV TITRATE 09/01/21 16:53 RPR (SYPHILIS SERO) W/ RFLX [REF] Routine 09/01/21 18:26 Acetaminophen [Tylenol Extra Strength] 1,000 mg PO Q4H PRN Acetaminophen [Tylenol Extra Strength] 500 mg PO Q4H PRN Benzocaine/Menthol [Dermoplast Pain Relief 20%-0.5% [place]] 78 gm TOP ASDIRECTED PRN Docusate Sodium [Colace] 100 mg PO Q12H PRN Ibuprofen [Motrin] 400 mg PO Q4H PRN Ibuprofen [Motrin] 800 mg PO Q6H PRN Lanolin [Lansinoh HPA] See Dose Instructions TOP ASDIRECTED PRN bisacodyL [Dulcolax] 10 mg RECTAL ONETIME PRN witch Megan [Tucks] 1 pad TOP ASDIRECTED PRN 09/01/21 18:28 Patient Status [ADT] Routine May Shower [RC] ASDIRECTED Up ad Diana [RC] ASDIRECTED Vital Signs [RC] PER UNIT ROUTINE Assess Lochia [WOMSER] Per Unit Routine Assess Uterine Involution [WOMSER] Per Unit Routine Peripheral IV Discontinue [OM.PC] Routine - Plan Plan:: 46yo G17 now [id number] s/p successful at 40w1d. Mom and baby are doing well. P: routine care
[2021-09-03 09:06] VITALS: PULSE 72
[2021-09-03 09:57] VITALS: BP 143/89
--- NOTE | 2021-09-03 13:43 | PCM.PNPP ---
- General Info Date of Service: 09/03/21 Functional Status: Reports: Pain Controlled - Review of Systems General: Reports: No Symptoms HEENT: Reports: No Symptoms Pulmonary: Reports: No Symptoms Cardiovascular: Reports: No Symptoms Gastrointestinal: Reports: No Symptoms Genitourinary: Reports: No Symptoms Musculoskeletal: Reports: No Symptoms Skin: Reports: No Symptoms Neurological: Reports: No Symptoms Psychiatric: Reports: No Symptoms - General Info Date of Service: 09/03/21 - Patient Data Vital Signs - Most Recent: Last Vital Signs Temp 36.6 C 09/03/21 08:30 Pulse 72 09/03/21 08:30 Resp 16 09/03/21 08:30 BP 143/89 H 09/03/21 09:40 Pulse Ox 98 09/03/21 08:30 Weight - Most Recent: 83.461 kg Lab Results - Last 24 Hours: Laboratory Results - last 24 hr 09/01/21 Range/Units 16:53 RPR Non-Reac (Non-Reac) Med Orders - Current: Current Medications Acetaminophen (Acetaminophen 500 Mg Tab) 500 mg PO Q4H PRN PRN Reason: Pain (mild 1-3) Acetaminophen (Acetaminophen 500 Mg Tab) 1,000 mg PO Q4H PRN PRN Reason: Pain (mild 1-3) Benzocaine/Menthol (Benzocaine/Menthol 20%-0.5% [place] 78 Gm Cannister) 78 gm TOP ASDIRECTED PRN PRN Reason: Perineal Comfort Measure Last Admin: 09/01/21 20:09 Dose: 1 canister Documented by: Bisacodyl (Bisacodyl 10 Mg Supp) 10 mg RECTAL ONETIME PRN PRN Reason: Constipation Butorphanol Tartrate (Butorphanol 1 Mg/Ml Sdv) 1 mg IVPUSH Q1H PRN PRN Reason: Pain (severe 7-10) Carboprost Tromethamine (Carboprost Tromethamine 250 Mcg/1 Ml Amp) 250 mcg IM ASDIRECTED PRN PRN Reason: Post Hemorrhage Docusate Sodium (Docusate Sodium 100 Mg Cap) 100 mg PO Q12H PRN PRN Reason: Constipation Last Admin: 09/02/21 07:57 Dose: 100 mg Documented by: Emollient Ointment (Lanolin 100% Cream 7 Gm Tube) 0 gm TOP ASDIRECTED PRN PRN Reason: Sore Nipples Last Admin: 09/01/21 20:09 Dose: 7 gram Documented by: Ephedrine Sulfate (Ephedrine 50 Mg/Ml Sdv) 10 mg IVPUSH Q5M PRN PRN Reason: Hypotension Ephedrine Sulfate (Ephedrine 50 Mg/Ml Sdv) 10 mg IVPUSH Q1M PRN PRN Reason: Hypotension Lactated Ringer's (Ringers, Lactated) 1,000 mls @ 150 mls/hr IV ASDIRECTED [facility] Last Admin: 09/01/21 17:39 Dose: 150 mls/hr Documented by: Oxytocin/Sodium Chloride (Oxytocin 30 Unit In Ns 0.9% 500 Ml Premix) 30 unit in 500 mls @ 500 mls/hr IV TITRATE [facility] Last Admin: 09/01/21 17:39 Dose: 500 mls/hr Documented by: Tranexamic Acid 1,000 mg/ (Sodium Chloride) 110 mls @ 660 mls/hr IV ONETIME PRN PRN Reason: Bleeding Ibuprofen (Ibuprofen 400 Mg Tab) 400 mg PO Q4H PRN PRN Reason: Pain (mild 1-3) Ibuprofen (Ibuprofen 800 Mg Tab) 800 mg PO Q6H PRN PRN Reason: Cramping Last Admin: 09/02/21 16:03 Dose: 800 mg Documented by: Lidocaine HCl (Lidocaine 1% 50 Ml Mdv) 50 ml INJECT ONETIME PRN PRN Reason: Laceration repair Methylergonovine Maleate (Methylergonovine 0.2 Mg/1 Ml Amp) 0.2 mg IM ASDIRECT ED PRN PRN Reason: Post Hemorrhage Miscellaneous Medication (Phenylephrine Hcl In 0.9% Nacl 1 Mg/10 Ml Syringe) 0.1 mg IVPUSH Q1M PRN PRN Reason: Hypotension Misoprostol (Misoprostol 200 Mcg Tab) 200 mcg PO ONETIME PRN PRN Reason: Post Hemorrhage Nalbuphine HCl (Nalbuphine 10 Mg/1 Ml Vial) 10 mg IVPUSH Q1H PRN PRN Reason: Pain (severe 7-10) Ondansetron HCl (Ondansetron 4 Mg/2 Ml Sdv) 4 mg IVPUSH Q6H PRN PRN Reason: Nausea/Vomiting Ropivacaine (Ropivacaine/Pf 400 Mg/200 Ml Pyrotechnic Mixer) 400 mg EPIDUR ASDIRECTED [facility] Sodium Chloride (Sodium Chloride 0.9% 10 Ml Syringe) 10 ml FLUSH ASDIRECTED PRN PRN Reason: Keep Vein Open Sodium Chloride (Sodium Chloride 0.9% 2.5 Ml Syringe) 2.5 ml FLUSH ASDIRECTED PRN PRN Reason: Keep Vein Open Sodium Chloride (Sodium Chloride 0.9% 20 Ml Sdv) 10 ml IV ASDIRECTED PRN PRN Reason: IV Use Sterile Water (Water For Irrigation,Sterile 1,000 Ml Container) 1,000 ml IRR ASDIRECTED PRN PRN Reason: delivery Witch Megan (Witch Megan Medicated Pads 40/Jar) 1 pad TOP ASDIRECTED PRN PRN Reason: comfort care Last Admin: 09/01/21 20:10 Dose: 1 tub Documented by: Discontinued Medications Fentanyl (Fentanyl 100 Mcg/2 Ml Sdv) Confirm Administered Dose 100 mcg .ROUTE .STK-MED ONE Stop: 09/01/21 17:39 Last Admin: 09/01/21 21:48 Dose: Not Given Documented by: Ropivacaine (Naropin 0.2%) Confirm Administered Dose 200 mls @ as directed . ROUTE .STK-MED ONE Stop: 09/01/21 17:38 Last Admin: 09/01/21 21:48 Dose: Not Given Documented by: - Interaction Disposition, : in Room with Family Infant Interaction: Holding Feeding: Attempted ; Nursed Fair/Poor Support Person: - Recovery Exam Fundal Tone: Firm Fundal Level: 2 Fingerbreadths Below Umbilicus Fundal Placement: Midline Lochia Amount: Scant Lochia Color: Rubra/Red Perineum Description: Intact, Minimal Bruising/Swelling Episiotomy/Laceration: None Bladder Status: Voiding Urinary Elimination: Voided - Exam General: Alert, Oriented HEENT: Pupils Equal Neck: Supple Lungs: Clear to Auscultation, Normal Respiratory Effort Cardiovascular: Regular Rate, Regular Rhythm GI/Abdominal Exam: Normal Bowel Sounds, Soft, Non-Tender, No Organomegaly, No Distention, No Abnormal Bruit, No Mass, Pelvis Stable Extremities: Normal Inspection, Normal Range of Motion, Non-Tender, No Pedal Edema, Normal Capillary Refill Skin: Warm, Dry, Intact Wound/Incisions: Healing Well Neurological: No New Focal Deficit Psy/Mental Status: Alert, Normal Affect, Normal Mood - Problem List Review Problem List Initiated/Reviewed/Updated: Yes - Assessment Assessment:: Patient will be sent home today - Plan Plan:: 46yo G17 now [id number] s/p successful at 40w1d. Mom and baby are doing well. P: routine care
== END 2021-09-03 13:40 | disposition home or self-care (01) | DRG 560 ==
LOC: MW.OB 16:23 → MW.OBCHECK 16:23 → MW.OB 16:43 → OBSVTOIN 18:08 → MW.OB 21:18
PROVIDERS: ADMIT Obstetrics & Gynecology Obstetrics; ATTEND Obstetrics & Gynecology
PROC: 10E0XZZ Delivery of Products of Conception, External Approach (ICD-10-PCS; principal; 2021-09-01)
PROC: 10907ZC Drainage of Amniotic Fluid, Therapeutic from Products of Conception, Via Natural or Artificial Opening (ICD-10-PCS; 2021-09-01)
PROC: 3E0R3BZ Introduction of Anesthetic Agent into Spinal Canal, Percutaneous Approach (ICD-10-PCS; 2021-09-01)
PROC: 00HU33Z Insertion of Infusion Device into Spinal Canal, Percutaneous Approach (ICD-10-PCS; 2021-09-01)
DX: O48.0 Post-term pregnancy (principal); Z3A.40 40 weeks gestation of pregnancy; Z37.0 Single live birth; O69.81X0 Labor and delivery complicated by cord around neck, without compression, not applicable or unspecified; Z20.822 Contact with and (suspected) exposure to COVID-19
CPT/HCPCS: 01967; 36415; 59025; 59409; 84112; 85014; 85018; 85027; 86592; 86850; 86900; 86901; A9270-GY; J2590; J2795; J3010; J7120; U0002

== ENCOUNTER 2024-02-10 11:36 | Day surgery (SDC) | payer BC ==
[2024-02-10] MEDS ORDERED: Albuterol 0.083% 2.5 MG/3 ML Neb Soln NEB PRN (12:07)
[2024-02-10] MEDS ORDERED: Metoclopramide 10 MG/2 ML SDV IVPUSH PRN (12:07)
[2024-02-10] MEDS ORDERED: HYDROmorphone 1 MG/ML Syringe IVPUSH PRN (12:07)
[2024-02-10] MEDS ORDERED: droPERidol 5 MG/2 ML SDV IVPUSH PRN (12:07)
[2024-02-10] MEDS ORDERED: Morphine 2 MG/ML SYRINGE IVPUSH PRN (12:07)
[2024-02-10] MEDS ORDERED: Naloxone 0.4 MG/ML SDV IVPUSH PRN (12:07)
[2024-02-10] MEDS ORDERED: fentaNYL 50 MCG/ML SDV IVPUSH PRN (12:07)
[2024-02-10] MEDS: Lactated Ringers 1,000 ML IV SCH (12:14)
[2024-02-10] MEDS ORDERED: Ondansetron 4 MG/2 ML SDV ONE (12:36)
[2024-02-10] MEDS ORDERED: fentaNYL 100 MCG/2 ML SDV ONE (12:36)
[2024-02-10] MEDS ORDERED: Dexamethasone 4 MG/ML 5 ML MDV ONE (12:36)
[2024-02-10] MEDS ORDERED: Lidocaine 2% 5 ML SDV ONE (12:36)
[2024-02-10] MEDS ORDERED: Propofol 200 MG/20 ML SDV ONE (12:36)
[2024-02-10] MEDS ORDERED: Ketorolac 30 MG/ML SDV ONE (12:36)
[2024-02-10] MEDS ORDERED: Tranexamic Acid 1,000 MG/10 ML Vial ONE (13:28)
[2024-02-10] MEDS ORDERED: Methylergonovine 0.2 MG/1 ML Amp ONE (13:29)
[2024-02-10] MEDS: Ondansetron 4 MG/2 ML SDV IVPUSH PRN (14:02)
[2024-02-10 14:39] VITALS: BP 119/75; PULSE 66
== END 2024-02-10 15:00 | disposition home or self-care (01) ==
LOC: MW.SDS 11:36
PROVIDERS: ATTEND Obstetrics & Gynecology
DX: O02.0 Blighted ovum and nonhydatidiform mole (principal); N84.1 Polyp of cervix uteri; F17.210 Nicotine dependence, cigarettes, uncomplicated; Z79.899 Other long term (current) drug therapy
CPT/HCPCS: 59820; J0131; J1100; J1885; J2210; J2405; J2704; J3010; J7120; 01965; J3490